=== PATIENT | female | born 1950 | race Caucasian/White ===

== ENCOUNTER → 2016-08-26 | Day surgery (SDC) | payer BC ==
[2016-08-17 09:04] VITALS: Ht 162.6 cm; Wt 81.8 kg
[~2016-08-26] VITALS: Ht 162.6 cm; Wt 81.8 kg
[~2016-08-26] MED LIST: 500ML BSS 0.3ML EPI 1:1000PF IRRIG ONE; ACETAMINOPHEN 325 MG TAB PO PRN; AMLO-110 PO; AMLO-114 PO; AMVISC PLUS 0.8ML SYRINGE INT OCU ONE; ATOR-22 PO; ATROPINE SULFATE 0.1 MG/ML 5ML SYR IV PRN; BROM0.07 OPL; BSS FLUSH ONE; EpHEDrine SULFATE INJ 50 MG/ML AMP IV PRN; EpINEphrine INJ 1MG/ML AMP 1 MG/ML AMP ONE; FENTANYL CITRATE INJ 50 MCG/1 ML 2 ML VIAL IV PRN; FLUMAZENIL 0.1 MG/1 ML 10 ML VIAL IV PRN; HYDROmorphone INJ 2 MG/ML SYR/VIAL IV PRN; LABETALOL HCL IV 5 MG/ML 20ML IV PRN; LACTATED RINGER'S 1000ML 500 ML IV SCH; LIDOCAINE 3.5% OPH GEL PER APPLICATION CHARGE ONE; LIDOCAINE HCL 1% MPF 2 ML VIAL ONE; MEPERIDINE HCL 25 MG/ML CARP IV PRN; MIDAZOLAM HCL 1 MG/ML 2ML VIAL ONE; NALOXONE HCL 0.4 MG/1 ML VIAL/CARP IV PRN; OCUCOAT 1 ML SOLN IO ONE; ONDANSETRON INJ 2 MG/ML 2 ML VIAL IV PRN; PHENYLEPHRINE 100MCG/ML 5ML SYR IV PRN; POVIDONE-IODINE OP SOLN 30 ML BTL ONE; PRED1SUS3 OPL; PROPARACAINE 0.5% OP SOLN PER DROP CHARGE OPL SCH; TOBRAMYCIN/DEXAMETHASONE OPH OINT PER APPLN CHARGE ONE
[2016-08-26] MEDS: PHENYLEPHRINE HCL 2.5% OP SOLN PER DROP CHARGE OPL SCH ×2 (08:58→09:04)
[2016-08-26] MEDS: TROPICAMIDE 1% OP SOLN PER DROP CHARGE OPL SCH ×2 (08:59→09:05)
[2016-08-26] MEDS: CYCLOPENTOLATE HCL 1% OP SOLN PER DROP CHARGE OPL SCH ×2 (09:00→09:06)
[2016-08-26] MEDS: KETOROLAC 0.5% OP SOLN PER DROP CHARGE OPL SCH ×2 (09:01→09:07)
[2016-08-26] MEDS: GATIFLOXACIN OP SOLN PER DROP CHARGE OPL SCH ×2 (09:03→09:15)
--- NOTE | 2016-08-26 09:17 | History & Physical Bridge - SC ---
H&P Re-Evaluation Bridge Note: I have examined the patient, reviewed the History & Physical and in the interval since the performance of the History & Physical I have noted the following changes of clinical significance: No changes noted
--- NOTE | 2016-08-26 10:01 | Discharge Instructions-SurgCtr ---
Discharge Instructions Date of Service August 26, 2016. Visit Reason for Visit: Cataract Left Eye Discharge Discharge Diagnosis / Problem: cataract Discharge Goals Goal(s): Improve function Activity Recommendations Activity Limitations: per Instructions/Follow-up section Anesthesia . Post Anesthesia Instructions: If you have had General Anesthesia or IV Sedation: * Do not drive today. * Resume driving when surgeon permits. * Do not make important decisions or sign legal documents today. * Call surgeon for: 1. Temperature elevations greater than 101 degrees F. 2. Uncontrollable pain. 3. Excessive bleeding. 4. Persistent nausea and vomiting. 5. Medication intolerance (nausea, vomiting or rash). * For nausea and vomiting use only clear liquids such as: tea, soda, bouillon until nausea subsides, then gradually increase diet as tolerated. * If you have any concerns or questions, call your surgeon's office. If physician is unavailable and it is an emergency, call 911 or go to the nearest emergency room. . Instructions / Follow-Up Instructions / Follow-Up ACTIVITY RECOMMENDATIONS: * No strenuous lifting, jogging or running for 4 days * No swimming or yard work for 1 week. * Limited bending is permitted, such as putting on shoes. RETURN TO SCHOOL/WORK: No work until seen by physician in office. MEDICATIONS: Resume previous medications unless instructed otherwise by your surgeon. This includes eye drops for glaucoma. Zymaxid/Gatifloxacin (power cap) - one drop every 2 hours until bedtime Nevanac/Ilevro/Prolensa/Ketorolac (arana cap) - one drop every 4 hours until bedtime Prednisolone (white/pink cap, SHAKE WELL) - one drop every 2 hours until bedtime Starting tomorrow - all 3 drops every 4 hours until seen in the office Optive drops - as needed for discomfort SPECIAL CARE INSTRUCTIONS: * Wear eyeshield when sleeping, for four nights. * You may wear your own glasses or sunglasses while awake. * You may read or watch TV * You may shower and wash your face, but be gentle around the eye and pat dry. * Blurry vision and mild irritation are normal. * Call office if pain is more severe or vision becomes dark at . FOLLOW UP VISIT: Follow-up with Dr Hewitt tomorrow. Diet Recommendations Home Diet: resume previous diet Procedures Procedures Performed: Left Cataract Phacoemulsification With Intraocular Lens Implant Pending Studies Studies pending at discharge: no Medical Emergencies . Who to Call and When: Medical Emergencies: If at any time you feel your situation is an emergency, please call 911 immediately. . Non-Emergent Contact Non-Emergency issues call your: Drawstring Knotter . . "Provider Documentation" section prepared by Ventura Hewitt. .
--- NOTE | 2016-08-26 10:02 | [facility] Operative Report ---
Operative Report Date of Service August 26, 2016. Operative Report 1. PREOPERATIVE DIAGNOSIS: Cataract of the left eye. 2. POSTOPERATIVE DIAGNOSIS: Same. 3. PROCEDURE: Phacoemulsification with intraocular lens implantation of the left eye. SURGEON: Dr. Ventura Hewitt. ANESTHESIA: Topical Lidocaine gel, 1% Non- Preserved intracameral Lidocaine, and monitored intravenous sedation. INDICATIONS FOR THE PROCEDURE: The patient is a 66 - year-old female with a history of cataract of the left eye causing significant visual impairment. The details of the proposed procedure were explained to the patient who asked appropriate questions and following discussion of all risks, benefits and alternatives agreed to have the procedure done. 4. OPERATION AND FINDINGS: DESCRIPTION OF PROCEDURE: After informed consent was obtained, the patient was brought to the Operating Room at the [facility]. The patient was placed in a supine position and then the left eye was prepped and draped in the usual sterile fashion for intraocular surgery. A drop of topical Lidocaine gel was placed in the operative eye. A wire lid speculum was then placed in the fornices. A corneal paracentesis was then created temporally. The Non-Preserved Lidocaine was then instilled into the anterior chamber. The anterior chamber was then pressurized with viscoelastic. A 2.0 mm clear corneal incision was then created temporally. A cystotome was inserted into the anterior chamber and used to create a tear in the anterior lens capsule. This capsular tear was then used to create a small flap and the flap was dragged in a counterclockwise direction in order to create a continuous curvilinear capsulorrhexis. Hydrodissection was accomplished with balanced salt solution. Phacoemulsification of the lens nucleus was then performed in a standard [id number] technique. The phaco time was 27 seconds with an average power of 10 %. The remaining cortical material was removed using irrigation aspiration. The capsular bag was then filled with viscoelastic. A Bausch & Lomb MX60 +20.0 diopters lens was then loaded into the injector and injected into the capsular bag. The remaining viscoelastic was removed with the irrigation aspiration handpiece. The wound was hydrated and then checked and found to be watertight. The intraocular pressure was checked and found to be adequate. The wire lid speculum was removed and the patient's face was cleaned and dried. TobraDex ointment was placed in the inferior fornix. The patient was discharged to the Recovery Room having tolerated the procedure well. There were no complications. The patient will be seen tomorrow in the office for follow-up. I attest to the content of the Intraoperative Record and any orders documented therein. Any exceptions are noted below.
[2016-08-26 10:08] VITALS: TEMP 37.3
--- NOTE | 2016-08-26 10:21 | Anesthesia Progress Nt - [facility] ---
Anesthesia Post Op Note Date & Time August 26, 2016 at 10:22 Vital Signs Pain Intensity: 0 Vital Signs Past 12 Hours Date Time Temp Pulse Resp B/P Pulse Ox O2 Delivery O2 Flow Rate FiO2 08/26/16 10:08 37.3 66 20 144/97 94 Room Air 08/26/16 08:46 36.7 83 20 123/80 95 Room Air Notes Mental Status: alert / awake / arousable, participated in evaluation Pt Amnestic to Procedure: Yes Nausea / Vomiting: adequately controlled Pain: adequately controlled Airway Patency, RR, SpO2: stable & adequate BP & HR: stable & adequate Hydration State: stable & adequate Anesthetic Complications: no major complications apparent
[2016-08-26 10:29] VITALS: BP 144/92; PULSE 76; O2SAT 97
== END | disposition home or self-care (01) ==
LOC: X.SURG 08:23
PROVIDERS: ATTEND Ophthalmology
DX: H26.9 Unspecified cataract (principal); I10 Essential (primary) hypertension; E78.5 Hyperlipidemia, unspecified

== ENCOUNTER → 2016-09-21 | Day surgery (SDC) | payer BC ==
[2016-09-07 08:37] VITALS: Ht 162.6 cm; Wt 81.8 kg
[~2016-09-21] VITALS: Ht 162.6 cm; Wt 81.8 kg
[~2016-09-21] MED LIST changes: -AMLO-110 PO; -BSS FLUSH ONE; -FENTANYL CITRATE INJ 50 MCG/1 ML 2 ML VIAL IV PRN; +FENTANYL CITRATE INJ 50 MCG/1 ML 2 ML VIAL ONE; -FLUMAZENIL 0.1 MG/1 ML 10 ML VIAL IV PRN; -HYDROmorphone INJ 2 MG/ML SYR/VIAL IV PRN; -LABETALOL HCL IV 5 MG/ML 20ML IV PRN; -MEPERIDINE HCL 25 MG/ML CARP IV PRN; -NALOXONE HCL 0.4 MG/1 ML VIAL/CARP IV PRN; -ONDANSETRON INJ 2 MG/ML 2 ML VIAL IV PRN; +ONDANSETRON INJ 2 MG/ML 2 ML VIAL ONE; -PHENYLEPHRINE 100MCG/ML 5ML SYR IV PRN; -PROPARACAINE 0.5% OP SOLN PER DROP CHARGE OPL SCH; +PROPARACAINE 0.5% OP SOLN PER DROP CHARGE OPR SCH; +TETRACAINE HCL (OPHTH) 60 DROPS/4 ML BTL OP ONE
[2016-09-21] MEDS: PHENYLEPHRINE HCL 2.5% OP SOLN PER DROP CHARGE OPR SCH ×2 (08:15→08:24)
[2016-09-21] MEDS: TROPICAMIDE 1% OP SOLN PER DROP CHARGE OPR SCH ×2 (08:16→08:25)
[2016-09-21] MEDS: CYCLOPENTOLATE HCL 1% OP SOLN PER DROP CHARGE OPR SCH ×2 (08:18→08:26)
[2016-09-21] MEDS: KETOROLAC 0.5% OP SOLN PER DROP CHARGE OPR SCH ×2 (08:19→08:29)
[2016-09-21] MEDS: GATIFLOXACIN OP SOLN PER DROP CHARGE OPR SCH ×2 (08:21→08:30)
--- NOTE | 2016-09-21 09:17 | Discharge Instructions-SurgCtr ---
Discharge Instructions Date of Service Sep 21, 2016. Visit Reason for Visit: Cataract Right Eye Discharge Discharge Diagnosis / Problem: cataract Discharge Goals Goal(s): Improve function Activity Recommendations Activity Limitations: per Instructions/Follow-up section Anesthesia . Post Anesthesia Instructions: If you have had General Anesthesia or IV Sedation: * Do not drive today. * Resume driving when surgeon permits. * Do not make important decisions or sign legal documents today. * Call surgeon for: 1. Temperature elevations greater than 101 degrees F. 2. Uncontrollable pain. 3. Excessive bleeding. 4. Persistent nausea and vomiting. 5. Medication intolerance (nausea, vomiting or rash). * For nausea and vomiting use only clear liquids such as: tea, soda, bouillon until nausea subsides, then gradually increase diet as tolerated. * If you have any concerns or questions, call your surgeon's office. If physician is unavailable and it is an emergency, call 911 or go to the nearest emergency room. . Instructions / Follow-Up Instructions / Follow-Up ACTIVITY RECOMMENDATIONS: * No strenuous lifting, jogging or running for 4 days * No swimming or yard work for 1 week. * Limited bending is permitted, such as putting on shoes. RETURN TO SCHOOL/WORK: No work until seen by physician in office. MEDICATIONS: Resume previous medications unless instructed otherwise by your surgeon. This includes eye drops for glaucoma. Zymaxid/Gatifloxacin (power cap) - one drop every 2 hours until bedtime Nevanac/Ilevro/Prolensa/Ketorolac (arana cap) - one drop every 4 hours until bedtime Prednisolone (white/pink cap, SHAKE WELL) - one drop every 2 hours until bedtime Starting tomorrow - all 3 drops every 4 hours until seen in the office Optive drops - as needed for discomfort SPECIAL CARE INSTRUCTIONS: * Wear eyeshield when sleeping, for four nights. * You may wear your own glasses or sunglasses while awake. * You may read or watch TV * You may shower and wash your face, but be gentle around the eye and pat dry. * Blurry vision and mild irritation are normal. * Call office if pain is more severe or vision becomes dark at . FOLLOW UP VISIT: Follow-up with Dr Hewitt tomorrow. Diet Recommendations Home Diet: resume previous diet Procedures Procedures Performed: Right Cataract Phacoemulsification With Intraocular Lens Implant Pending Studies Studies pending at discharge: no Medical Emergencies . Who to Call and When: Medical Emergencies: If at any time you feel your situation is an emergency, please call 911 immediately. . Non-Emergent Contact Non-Emergency issues call your: Occ Therapy Asst . . "Provider Documentation" section prepared by Ventura Hewitt. .
--- NOTE | 2016-09-21 09:18 | [facility] Operative Report ---
Operative Report Date of Service Sep 21, 2016. Operative Report 1. PREOPERATIVE DIAGNOSIS: Cataract of the right eye. 2. POSTOPERATIVE DIAGNOSIS: Same. 3. PROCEDURE: Phacoemulsification with intraocular lens implantation of the right eye. SURGEON: Dr. Ventura Hewitt. ANESTHESIA: Topical Lidocaine gel, topical tetracaine, 1% Non-Preserved intracameral Lidocaine, and monitored intravenous sedation. INDICATIONS FOR THE PROCEDURE: The patient is a 66 - year-old female with a history of cataract of the right eye causing significant visual impairment. The details of the proposed procedure were explained to the patient who asked appropriate questions and following discussion of all risks, benefits and alternatives agreed to have the procedure done. 4. OPERATION AND FINDINGS: DESCRIPTION OF PROCEDURE: After informed consent was obtained, the patient was brought to the Operating Room at the [facility]. The patient was placed in a supine position and then the right eye was prepped and draped in the usual sterile fashion for intraocular surgery. A drop of topical Lidocaine gel was placed in the operative eye. Topical tetracaine was then instilled into the right eye. A wire lid speculum was then placed in the fornices. A corneal paracentesis was then created temporally. The Non- Preserved Lidocaine was then instilled into the anterior chamber. The anterior chamber was then pressurized with viscoelastic. A 2.0 mm clear corneal incision was then created temporally. A cystotome was inserted into the anterior chamber and used to create a tear in the anterior lens capsule. This capsular tear was then used to create a small flap and the flap was dragged in a counterclockwise direction in order to create a continuous curvilinear capsulorrhexis. Hydrodissection was accomplished with balanced salt solution. Phacoemulsification of the lens nucleus was then performed in a standard divide- and-conquer technique. The phaco time was 20 seconds with an average power of 10 %. The remaining cortical material was removed using irrigation aspiration. The capsular bag was then filled with viscoelastic. A Bausch & Lomb MX60 + 17.5 diopters lens was then loaded into the injector and injected into the capsular bag. The remaining viscoelastic was removed with the irrigation aspiration handpiece. The wound was hydrated and then checked and found to be watertight. The intraocular pressure was checked and found to be adequate. The wire lid speculum was removed and the patient's face was cleaned and dried. TobraDex ointment was placed in the inferior fornix. The patient was discharged to the Recovery Room having tolerated the procedure well. There were no complications. The patient will be seen tomorrow in the office for follow-up. I attest to the content of the Intraoperative Record and any orders documented therein. Any exceptions are noted below.
[2016-09-21 09:20] VITALS: TEMP 36.3
--- NOTE | 2016-09-21 09:34 | Anesthesia Progress Nt - [facility] ---
Anesthesia Post Op Note Date & Time Sep 21, 2016 at 09:34 Vital Signs Pain Intensity: 0 Vital Signs Past 12 Hours Date Time Temp Pulse Resp B/P (MAP) Pulse Ox O2 Delivery O2 Flow Rate FiO2 09/21/16 09:20 36.3 63 14 106/65 (79) 94 Room Air 09/21/16 08:00 37 83 16 134/85 (101) 95 Room Air Notes Mental Status: alert / awake / arousable, participated in evaluation Pt Amnestic to Procedure: Yes Nausea / Vomiting: adequately controlled Pain: adequately controlled Airway Patency, RR, SpO2: stable & adequate BP & HR: stable & adequate Hydration State: stable & adequate Anesthetic Complications: no major complications apparent
[2016-09-21 09:55] VITALS: BP 118/69; PULSE 64; O2SAT 97
== END | disposition home or self-care (01) ==
LOC: X.SURG 07:50
PROVIDERS: ATTEND Ophthalmology
DX: H26.9 Unspecified cataract (principal); E11.9 Type 2 diabetes mellitus without complications; Z96.649 Presence of unspecified artificial hip joint; Z83.3 Family history of diabetes mellitus

== ENCOUNTER 2024-01-16 18:26 | Inpatient (IN) ==
[2024-01-16] MEDS: HYDROmorphone INJ 0.5 MG/0.5 ML SYR IV PRN (19:11)
[2024-01-16] MEDS: ONDANSETRON INJ 2 MG/ML 2 ML VIAL ONE (19:11)
[2024-01-16] MEDS: SODIUM CHLORIDE 0.9% 1,000 ML IV SCH (19:13)
[2024-01-16 19:36] LABS: Basophils # (auto) 0.07 K/uL (0.00-0.20); Basophils % (auto) 0.7 %; Eosinophils # (auto) 0.15 K/uL (0.00-0.50); Eosinophils % (auto) 1.4 %; Hematocrit (blood only) 41.3 % (37.0-47.0); Hemoglobin 13.2 g/dl (12.0-16.0); Immature Granulocytes # (auto) 0.03 K/uL (0.01-0.20); Immature Granulocytes % (auto) 0.3 %; Lymphocytes # (auto) 2.04 K/uL (1.20-3.40); Lymphocytes % (auto) 19.6 %; Mean Corpuscular Hemoglobin 29.7 pg (25.0-34.0); Mean Platelet Volume 10.4 fL (9.4-12.4); Monocytes # (auto) 0.84 K/uL (0.11-0.59); Monocytes % (auto) 8.1 %; Neutrophils # (auto) 7.28 K/uL (1.40-6.50); Neutrophils % (auto) 69.9 %; Platelet Count 305 K/uL (130-400); RDW Coefficient of Variation 12.9 % (11.5-14.5); RDW Standard Deviation 43.8 fL (36.4-46.3); Red Blood Count 4.44 M/uL (4.20-5.40); White Blood Count 10.41 K/ul (4.8-10.8)
[2024-01-16 19:46] LABS: Albumin Globulin Ratio 1.4 (0.9-2); Albumin Level 4.7 gm/dl (3.4-5.0); BUN Creatinine Ratio 24.8 (10-20); Bilirubin,Total 0.4 mg/dl (0.2-1.0); Creatinine Clr Calc Pharmacy 49.1 ml/min; Est GFR (African American) 55.8 ml/min; Est GFR (Non-African American) 48.2 ml/min; Globulin 3.3 gm/dl (2.5-4.0); Potassium 3.9 mmol/L (3.5-5.1)
[2024-01-16 20:02] LABS: INR 0.9 (0.9-1.1); Partial Thromboplastin Ratio 0.9; Partial Thromboplastin Time 25 Seconds (21-31); Prothrombin Time 10.2 Seconds (9.0-12.0)
[2024-01-16 20:16] LABS: Appearance Urine Clear (Clear); Bilirubin Urine Negative (Negative); Blood Urine Trace-lysed (Negative); Color Urine Yellow; Glucose Urine UA Negative (Negative); Ketones Urine Negative (Negative); Leukocyte Esterase Urine Negative (Negative); Nitrite Urine Negative (Negative); Protein Urine 1+ (Negative); Specific Gravity Urine 1.025 (1.000-1.030); Urobilinogen Urine Negative (Negative); pH Urine 5.5 (4.5-7.5)
--- NOTE | 2024-01-16 20:40 | Emergency Department Note ---
Impression & Plan Acute pain of right hip ED Provider Note NAME: EMELYN PATRICK AGE: 73 SEX: Female INFORMANT: Patient ED PROVIDER(S): Ritesh Vega MD CHIEF COMPLAINT: Right hip pain PLAN: Disposition: Admitted Outpatient prescription management: none Referral: None MEDICAL DECISION MAKING: Patient presented because of acute right hip pain. She was unable to walk. She had tenderness on examination. Rest of her examination did not reveal any significant findings. An IV was established. She was given IV Dilaudid and Zofran. The patient underwent x-ray imaging. There was some concern for possible femoral neck fracture. Body habitus did make interpretation of x-ray challenging. Blood work was unremarkable. ECG did not show any acute findings. CT imaging was ordered to further elucidate the severe hip pain. CT imaging was very concerning for the femoral neck fracture. Patient was reassessed. She was feeling better after the IV Dilaudid. She is not ambulatory. She will need admission to the hospital, orthopedic consultation and further management. Consultation was made with Dr. Gabino Weeks, [facility] hospitalist service. Patient was evaluated in the ER and admitted for further management Care/management discussed with: ED case management Level of care consideration(s): After review of the information above and other included data, I feel the patient requires escalation of care to admission. Triage Nursing notes: reviewed and agree them. Vital Signs: reviewed and remarkable for hypertension Additional History obtained from: none Chronic Medical/Social Conditions affecting care: Hypertension Prior/ Outside/ External records reviewed: none Differential Diagnosis: Fracture, dislocation, neurovascular compromise, pelvic fracture, muscle tear, compartment syndrome, soft tissue injury, as well as other pathologies. Diagnostics, independently interpreted by me: ECG: Twelve-lead ECG reveals a normal sinus rhythm with inferior Q waves at [address] elevation or depression Cardiac Monitoring: Cardiac monitoring ordered by me: The patient was placed on continuous cardiac monitoring and observed. It revealed a normal sinus rhythm at 75 beats per minute without ectopy or evidence of dysrhythmia. Medical decision rules: none Imaging studies: X-ray imaging of the right hip is concerning for nondisplaced femoral neck fracture. Chest x-ray. Findings: A chest x-ray was performed and revealed no pneumothorax, effusion, infiltrate, pulmonary edema, free air under the diaphragm, or wide mediastinum. Impression: No acute disease. HPI: 73 year old Female arrives for evaluation of severe right hip pain. This started mildly last night and became severe this morning. Patient states she heard a crack when she tried to stand up and cannot bear weight. EMS was summoned. The patient also notes the following associated symptoms, none. The patient has been given fentanyl 100 mcg IM for relieving factors. Current pain is rated as 5/10. Pt denies LOC, headache, visual changes, neck pain, chest pain, breathing difficulties, nausea, vomiting, abdominal pain, back pain, other extremity pain, numbness, weakness, open wounds, active bleeding, or other complaints. PAST MEDICAL HISTORY: See Below, hypertension PAST SURGICAL HISTORY: See Below, left hip replacement SOCIAL HISTORY: See Below, non-smoker HOME MEDICATIONS: See Below ALLERGIES: See Below VITALS: See Below PHYSICAL EXAMINATION: GENERAL: Awake, alert, uncomfortable-appearing, in no distress HENT: Normocephalic, atraumatic. Oropharynx unremarkable. EYES: Normal conjunctiva. Sclera non-icteric. NECK: Inspection normal. Non-tender. Supple. No nuchal rigidity. FROM. No masses. RESPIRATORY: Clear to auscultation. No wheezes. No rales. Normal respiratory effort. CARDIAC: Normal rate. Normal rhythm. No murmurs. No rubs. Extremities warm and well perfused. Pulses equal. No JVD. GI: Soft, non-distended. No tenderness to palpation. No rebound or guarding. No masses. RECTAL: Deferred. MUSCULOSKELETAL: Both upper and left lower extremities are atraumatic. Examination of the right hip reveals tenderness to palpation and also limited range of motion secondary to pain in the right hip joint. The femur, knee, and distal lower leg examined normally. LOWER EXTREMITIES: Calves are equal size bilaterally and non-tender. No edema. No discoloration. NEURO: Normal sensorium. No sensory or motor deficits noted. SKIN: No rash or jaundice noted. PROCEDURES: none CRITICAL CARE: none OBSERVATION NOTE: none Past Med/Surg History Problem List (Updated 01/16/24 @ 20:40 by Ritesh Vega MD) Acute pain of right hip (Acute) Dyslipidemia (Chronic) Hypertension (Chronic) Social History Smoking Status: Never smoker Preferred Language: Croatian Feels Safe at Home: Yes Allergies Allergies Allergy/AdvReac Type Severity Reaction Status Date / Time Penicillins Allergy Unknown RASH Verified 01/16/24 21:45 simvastatin AdvReac Unknown MUSCLE Verified 01/16/24 21:45 CRAMPING Home Meds Home Medications Medication Instructions Recorded Confirmed ATORVASTATIN (LIPITOR) 20 mg PO QAM #0 tabs 08/17/16 acetaminophen 650 mg 650 mg PO PRN Pain 01/16/24 tablet,extended release (Tylenol Arthritis Pain) multivitamin 1 tab PO DAILY 01/16/24 01/16/24 Results & Data (ED) Vital Signs Vital Signs - 24 hr 01/16/24 18:35 01/16/24 19:29 01/16/24 20:59 Temperature 36.8 C Temperature Source Oral Pulse Rate 83 75 Pulse Rate [Apical] 75 Respiratory Rate 20 20 Respiratory Effort / Characteristics Non-Labored Spontaneous Non-Labored Spontaneous Respiratory Depth Normal Normal Respiratory Pattern Regular Regular Blood Pressure 207/95 H Blood Pressure [Left Arm] 160/80 H Blood Pressure Mean 132 Blood Pressure Mean [Left Arm] 106 Pulse Oximetry 98 97 Oxygen Delivery Method Room Air Room Air Sepsis Recent Fever Within 48 Hours No Sepsis New/Unexplained Change in Mental Status N/A Sepsis Action Taken by Nursing No Action Required Laboratory Data 01/16/24 18:45 01/16/24 18:45 Lab Results 01/16/24 01/16/24 Range/Units 18:45 20:03 WBC 10.41 (4.8-10.8) K/ul RBC 4.44 (4.20-5.40) M/uL Hgb 13.2 (12.0-16.0) g/dl Hct 41.3 (37.0-47.0) % MCV 93.0 (80.0-100.0) fL MCH 29.7 (25.0-34.0) pg MCHC 32.0 (32.0-36.0) g/dL RDW Std Deviation 43.8 (36.4-46.3) fL RDW Coeff of Leana 12.9 (11.5-14.5) % Plt Count 305 (130-400) K/uL MPV 10.4 (9.4-12.4) fL Immature Gran % (Auto) 0.3 % Neut % (Auto) 69.9 % Lymph % (Auto) 19.6 % [place] % (Auto) 8.1 % Eos % (Auto) 1.4 % Baso % (Auto) 0.7 % Neut # (Auto) 7.28 H (1.40-6.50) K/uL Lymph # (Auto) 2.04 (1.20-3.40) K/uL [place] # (Auto) 0.84 H (0.11-0.59) K/uL Eos # (Auto) 0.15 (0.00-0.50) K/uL Baso # (Auto) 0.07 (0.00-0.20) K/uL Immature Gran # (Auto) 0.03 (0.01-0.20) K/uL PT 10.2 (9.0-12.0) Seconds INR 0.9 (0.9-1.1) APTT 25 (21-31) Seconds PTT Ratio 0.9 Sodium 141 (136-145) mmol/L Potassium 3.9 (3.5-5.1) mmol/L Chloride 106 (98-107) mmol/L Carbon Dioxide 24 (21-32) mmol/L Anion Gap 11 (3-11) BUN 28 H (6-23) mg/dl Creatinine 1.13 (0.6-1.2) mg/dl Est Cr Clr Drug Dosing 49.1 ml/min Est GFR ( Amer) 55.8 ml/min Est GFR (Non-Af Amer) 48.2 ml/min BUN/Creatinine Ratio 24.8 H (10-20) Glucose 102 H (70-99(Fasting)) mg/dl Calcium 10.0 (8.6-10.3) mg/dl Total Bilirubin 0.4 (0.2-1.0) mg/dl AST 27 (13-39) U/L ALT 19 (7-52) U/L Alkaline Phosphatase 58 (34-104) U/L Total Protein 8.0 (6.0-8.3) gm/dl Albumin 4.7 (3.4-5.0) gm/dl Globulin 3.3 (2.5-4.0) gm/dl Albumin/Globulin Ratio 1.4 (0.9-2) Urine Color Yellow Urine Appearance Clear (Clear) Urine pH 5.5 (4.5-7.5) Ur Specific [place] 1.025 (1.000-1.030) Urine Protein 1+ H (Negative) Urine Glucose (UA) Negative (Negative) Urine Ketones Negative (Negative) Urine Blood Trace-lysed H (Negative) Urine Nitrite Negative (Negative) Urine Bilirubin Negative (Negative) Urine Urobilinogen Negative (Negative) Ur Leukocyte Esterase Negative (Negative) Urine RBC 0-2 (0-2) /hpf Urine WBC 0-5 (0-5) /hpf Ur Epithelial Cells 0-2 (0-2) /hpf Urine Bacteria None Seen (None Seen) Administered Medications Sodium Chloride (Nss) 1,000 mls @ 75 mls/hr IV .[id number] [place] Stop: 01/17/24 08:34 Last Admin: 01/16/24 19:13 Dose: 75 mls/hr Documented By: ANGI Discontinued Medications Hydromorphone HCl (Hydromorphone Inj 0.5 Mg/0.5 Ml Syr) 0.5 mg IV Q20M PRN PRN Reason: Severe Pain Stop: 01/30/24 19:07 Last Admin: 01/16/24 20:58 Dose: 0.5 mg Documented By: Admin: 01/16/24 19:47 Dose: 0.5 mg Documented By: Admin: 01/16/24 19:11 Dose: 0.5 mg Documented By: ANGI Ondansetron HCl (Ondansetron Inj 2 Mg/Ml 2 Ml Vial) Confirm Administered Dose 4 mg .ROUTE .STK-MED ONE Stop: 01/16/24 19:12 Last Admin: 01/16/24 19:11 Dose: 4 mg Documented By: ANGI Discharge Plan Visit Data Chief Complaint: Hip Pain ED Provider: Ritesh Vega Discharge Problem: Acute pain of right hip Forms Stand Alone Forms: [facility] Prescriptions Prescriptions: No Action ATORVASTATIN (LIPITOR) 20 MG tablet 20 mg PO QAM Qty: 0 Patient Comments: pt states she does not take anymore, states a provider did not tell her to stop taking multivitamin [Multi-Vitamins] Tablet 1 tab PO DAILY acetaminophen [Tylenol Arthritis Pain] 650 mg Tablet Extended Release 650 mg PO PRN (Reason: Pain) Referrals Referrals: Porter Whitmore DO [Primary Care Provider] -
[2024-01-16 21:25] LABS: Bacteria Urine None Seen (None Seen); Epithelial Cell Urine 0-2 /hpf (0-2); RBC Urine 0-2 /hpf (0-2); WBC Urine 0-5 /hpf (0-5)
[2024-01-16] MEDS ORDERED: PROMETHAZINE 6.25 MG/50.25 ML BAG IV PRN (21:35)
--- NOTE | 2024-01-16 23:33 | History & Physical Report ---
Date of Service January 16, 2024 Assessment & Plan (1) Asymptomatic hypertensive urgency: Plan: Secondary to right femoral fracture possible systolic murmur on exam hyperlipidemia, on statin Rx DM2 diet-controlled, well-controlled as of recent hemoglobin A1c of 5.2 last 2021 anal cancer status post surgery/chemoradiation Admit to medical telemetry given uncontrolled BP Initiate losartan Analgesia TTE re: systolic murmur Orthopedics consult Re: Right femoral fracture N.p.o. in anticipation of procedure Final medical evaluation contingent on BP control and TTE results ISS BG goal 1 - 40, update hemoglobin A1c DVT prophylaxis. SCDs re: possible surgery Full code Text document was generated using [employer] voice recognition software. It may contain grammatical or spelling errors. Kindly contact undersigned for clarification of any documentation item in question. History of Present Illness Chief Complaint: Right hip pain Primary Care Provider: Porter Whitmore DO History obtained from patient and records. Medical history significant for hypertension, hyperlipidemia, DM2 diet- controlled, anal cancer status post surgery/chemoradiation. Patient heard and felt a crack on the right hip as she tried to stand up last night. Discomfort worse this morning. No recollection of recent falls. No headache, no chest pain, no SOB. SBP 200s upon arrival at the ER. Medical History as above Surgical History : Hip surgery, back surgery, rectal biopsy Family History : Heart disease, stroke, lung cancer, DM Personal/Social history :non-smoker, occasional EtOH intake, retired businesswoman Allergies Allergy/AdvReac Type Severity Reaction Status Date / Time Penicillins Allergy Unknown RASH Verified 01/16/24 21:45 simvastatin AdvReac Unknown MUSCLE Verified 01/16/24 21:45 CRAMPING Home Medications Medication Instructions Recorded Confirmed Type acetaminophen 650 mg 650 mg PO DIRECTED PRN Pain 01/16/24 01/17/24 History tablet,extended release (Tylenol Arthritis Pain) multivitamin 1 tab PO DAILY 01/16/24 01/17/24 History Pre/Probiotic 1 cap PO DAILY 01/17/24 01/17/24 History Super Beets 1 cap PO DAILY 01/17/24 01/17/24 History Vitamin For Kidney 2 cap PO DAILY 01/17/24 01/17/24 History Vitamin For Liver 1 cap PO DAILY 01/17/24 01/17/24 History Past Med/Surg History Problem List (Updated 01/17/24 @ 05:15 by Gabino Weeks MD) Asymptomatic hypertensive urgency Acute pain of right hip (Acute) Dyslipidemia (Chronic) Hypertension (Chronic) Social History Smoking Status: Never smoker Hx Alcohol Use: No Hx Substance Use: No Preferred Language: Hebrew Communication Ability: Effective Case Worker Required: No Beliefs That Will Affect Care: None Current Living Situation: Alone Feels Safe at Home: Yes Safety Concerns: Feels Safe At This Time Assistive Devices: None Review of Systems Review of Systems: As per HPI, all other systems reviewed and negative Physical Exam Physical Exam: GENERAL: uncomfortable, obese, no respiratory distress SKIN: Normal color, warm HEENT: [place] palpebral conjunctivae, no ptosis, dry buccal mucosa NECK : Supple, short neck, no tenderness CHEST : CTA, no tenderness HEART : RRR, systolic murmur ABDOMEN: Some distention, nontender EXTREMITIES : Minimal LE swelling, right hip tenderness, no other conspicuous deformities noted NEUROLOGIC : Coherent, no facial asymmetry, no other gross focality Results & Data Results & Data Vital Signs (Past 12 Hours) Vital Signs Temp Pulse Pulse Resp BP BP Pulse Ox 01/16/24 23:25 73 01/16/24 22:00 81 22 168/87 H 93 01/16/24 20:59 75 20 160/80 H 97 01/16/24 19:29 75 01/16/24 18:35 36.8 C 83 20 207/95 H 98 O2 Del Method 01/16/24 23:25 01/16/24 22:00 Room Air 01/16/24 20:59 Room Air 01/16/24 19:29 01/16/24 18:35 Room Air Laboratory Results Laboratory Results WBC 10.41 K/ul (4.8-10.8) 01/16/24 18:45 RBC 4.44 M/uL (4.20-5.40) 01/16/24 18:45 Hgb 13.2 g/dl (12.0-16.0) 01/16/24 18:45 Hct 41.3 % (37.0-47.0) 01/16/24 18:45 MCV 93.0 fL (80.0-100.0) 01/16/24 18:45 MCH 29.7 pg (25.0-34.0) 01/16/24 18:45 MCHC 32.0 g/dL (32.0-36.0) 01/16/24 18:45 RDW Std Deviation 43.8 fL (36.4-46.3) 01/16/24 18:45 RDW Coeff of Leana 12.9 % (11.5-14.5) 01/16/24 18:45 Plt Count 305 K/uL (130-400) 01/16/24 18:45 MPV 10.4 fL (9.4-12.4) 01/16/24 18:45 Immature Gran % (Auto) 0.3 % 01/16/24 18:45 Neut % (Auto) 69.9 % 01/16/24 18:45 Lymph % (Auto) 19.6 % 01/16/24 18:45 [place] % (Auto) 8.1 % 01/16/24 18:45 Eos % (Auto) 1.4 % 01/16/24 18:45 Baso % (Auto) 0.7 % 01/16/24 18:45 Neut # (Auto) 7.28 K/uL (1.40-6.50) H 01/16/24 18:45 Lymph # (Auto) 2.04 K/uL (1.20-3.40) 01/16/24 18:45 [place] # (Auto) 0.84 K/uL (0.11-0.59) H 01/16/24 18:45 Eos # (Auto) 0.15 K/uL (0.00-0.50) 01/16/24 18:45 Baso # (Auto) 0.07 K/uL (0.00-0.20) 01/16/24 18:45 Immature Gran # (Auto) 0.03 K/uL (0.01-0.20) 01/16/24 18:45 PT 10.2 Seconds (9.0-12.0) 01/16/24 18:45 INR 0.9 (0.9-1.1) 01/16/24 18:45 APTT 25 Seconds (21-31) 01/16/24 18:45 PTT Ratio 0.9 01/16/24 18:45 Sodium 141 mmol/L (136-145) 01/16/24 18:45 Potassium 3.9 mmol/L (3.5-5.1) 01/16/24 18:45 Chloride 106 mmol/L (98-107) 01/16/24 18:45 Carbon Dioxide 24 mmol/L (21-32) 01/16/24 18:45 Anion Gap 11 (3-11) 01/16/24 18:45 BUN 28 mg/dl (6-23) H 01/16/24 18:45 Creatinine 1.13 mg/dl (0.6-1.2) 01/16/24 18:45 Est Cr Clr Drug Dosing 49.1 ml/min 01/16/24 18:45 Est GFR ( Amer) 55.8 ml/min 01/16/24 18:45 Est GFR (Non-Af Amer) 48.2 ml/min 01/16/24 18:45 BUN/Creatinine Ratio 24.8 (10-20) H 01/16/24 18:45 Glucose 102 mg/dl (70-99(Fasting)) H 01/16/24 18:45 Calcium 10.0 mg/dl (8.6-10.3) 01/16/24 18:45 Total Bilirubin 0.4 mg/dl (0.2-1.0) 01/16/24 18:45 AST 27 U/L (13-39) 01/16/24 18:45 ALT 19 U/L (7-52) 01/16/24 18:45 Alkaline Phosphatase 58 U/L (34-104) 01/16/24 18:45 Total Protein 8.0 gm/dl (6.0-8.3) 01/16/24 18:45 Albumin 4.7 gm/dl (3.4-5.0) 01/16/24 18:45 Globulin 3.3 gm/dl (2.5-4.0) 01/16/24 18:45 Albumin/Globulin Ratio 1.4 (0.9-2) 01/16/24 18:45 Urine Color Yellow 01/16/24 20:03 Urine Appearance Clear (Clear) 01/16/24 20:03 Urine pH 5.5 (4.5-7.5) 01/16/24 20:03 Ur Specific [place] 1.025 (1.000-1.030) 01/16/24 20:03 Urine Protein 1+ (Negative) H 01/16/24 20:03 Urine Glucose (UA) Negative (Negative) 01/16/24 20:03 Urine Ketones Negative (Negative) 01/16/24 20:03 Urine Blood Trace-lysed (Negative) H 01/16/24 20:03 Urine Nitrite Negative (Negative) 01/16/24 20:03 Urine Bilirubin Negative (Negative) 01/16/24 20:03 Urine Urobilinogen Negative (Negative) 01/16/24 20:03 Ur Leukocyte Esterase Negative (Negative) 01/16/24 20:03 Urine RBC 0-2 /hpf (0-2) 01/16/24 20:03 Urine WBC 0-5 /hpf (0-5) 01/16/24 20:03 Ur Epithelial Cells 0-2 /hpf (0-2) 01/16/24 20:03 Urine Bacteria None Seen (None Seen) 01/16/24 20:03 CT right hip Nondisplaced basicervical fracture of the right femur. Diagnostic Findings Chest x-ray as per my interpretation cardiomegaly EKG as per my interpretation : Rate 75, NSR, normal axis, inferior infarct, T wave abnormalities inferior leads
[2024-01-16 23:40] LABS: Magnesium 2.2 mg/dl (1.7-2.4)
[2024-01-16] MEDS ORDERED: NALOXONE HCL 0.4 MG/1 ML VIAL/CARP IV PRN (23:49)
[2024-01-16] MEDS ORDERED: bisacodyL 10 MG SUPP PR PRN (23:49)
[2024-01-17] MEDS: PROMETHAZINE 6.25 MG/50.25 ML BAG IV STA (00:15)
[2024-01-17] MEDS: FAMOTIDINE 20MG IV PUSH 20 MG/5 ML SYR IV STA (00:15)
[2024-01-17] MEDS: LOSARTAN POTASSIUM 25 MG TAB PO STA (00:15)
[2024-01-17] MEDS: LORATADINE 10 MG TAB PO ONE (00:15)
--- NOTE | 2024-01-17 00:19 | CT Scan Report ---
Exam(s): CT RIGHT HIP Without Contrast EXAM: CT Right Lower Extremity Without Intravenous Contrast, Hip CLINICAL HISTORY: Reason for exam: hip pain, ? femoral neck fx. TECHNIQUE: Axial computed tomography images of the right hip without intravenous contrast. CTDI is 37.23 mGy and DLP is 596.70 mGy-cm. Automated exposure control was utilized for the study. A dose lowering technique was utilized adhering to the principles of ALARA. COMPARISON: Same day right hip radiographs FINDINGS: Bones/joints: Nondisplaced basicervical fracture of the right femur. Right hip joint effusion. No dislocation. Soft tissues: Unremarkable. Vasculature: Phleboliths seen in the right pelvis. IMPRESSION: Nondisplaced basicervical fracture of the right femur. Electronically signed by: Raffy Guadalupe M.D. 01/17/24 00:18 AM
[2024-01-17] MEDS ORDERED: GLUCAGON FOR INJ 1 MG VIAL SQ PRN (01:40)
[2024-01-17] MEDS ORDERED: DEXTROSE 50% 50 ML SYRINGE IV PRN (01:40)
[2024-01-17] MEDS ORDERED: GLUCOSE 40% GEL 15 GM TUBE PO PRN (01:40)
[2024-01-17] MEDS ORDERED: GLUCOSE 10 TAB/TUBE PO PRN (01:40)
[2024-01-17] MEDS ORDERED: CARBOHYDRATES FOR HYPOGLYCEMIA PO PRN (01:40)
[2024-01-17] MEDS: INSULIN ASPART PER UNIT CHARGE SC SCH (03:41)
[2024-01-17 05:06] LABS: Basophils # (auto) 0.04 K/uL (0.00-0.20); Basophils % (auto) 0.5 %; Eosinophils # (auto) 0.09 K/uL (0.00-0.50); Hematocrit (blood only) 34.1 % (37.0-47.0); Hemoglobin 11.3 g/dl (12.0-16.0); Immature Granulocytes # (auto) 0.03 K/uL (0.01-0.20); Immature Granulocytes % (auto) 0.3 %; Lymphocytes # (auto) 1.72 K/uL (1.20-3.40); Lymphocytes % (auto) 19.6 %; Mean Corpuscular Hemoglobin 30.5 pg (25.0-34.0); Mean Corpuscular Hgb Conc 33.1 g/dL (32.0-36.0); Mean Corpuscular Volume 92.2 fL (80.0-100.0); Mean Platelet Volume 10.1 fL (9.4-12.4); Monocytes # (auto) 0.81 K/uL (0.11-0.59); Monocytes % (auto) 9.2 %; Neutrophils # (auto) 6.08 K/uL (1.40-6.50); Neutrophils % (auto) 69.4 %; Platelet Count 276 K/uL (130-400); RDW Coefficient of Variation 12.9 % (11.5-14.5); RDW Standard Deviation 43.6 fL (36.4-46.3); White Blood Count 8.77 K/ul (4.8-10.8)
[2024-01-17 05:17] LABS: BUN Creatinine Ratio 25.5 (10-20); Calcium 9.2 mg/dl (8.6-10.3); Creatinine Clr Calc Pharmacy 54.4 ml/min; Est GFR (African American) 63.2 ml/min; Est GFR (Non-African American) 54.5 ml/min
[2024-01-17] MEDS: MoRPHine SULFATE 4 MG/ML 1 ML CARP\\VIAL IV PRN (05:26)
[2024-01-17] MEDS: oxyCODONE HCL IR 5 MG TAB (IMMEDIATE RELEASE) PO PRN (06:36)
--- NOTE | 2024-01-17 07:01 | XRay Report ---
XR hip RT min 2V HISTORY: 73 years-old Female right hip pain acute right hip pain COMPARISON: CT right hip of same day TECHNIQUE: 2 views of the right hip FINDINGS: There is a subtle acute nondisplaced basicervical fracture of the right femur. No dislocation. Jayda garcia imaged left hip arthroplasty. There is [id number] right hip osteoarthritis. Fusion hardware of the lumbar spine. IMPRESSION: Acute nondisplaced basicervical right femoral fracture. ACT 112: Negative or not required by law. The above report was generated using voice recognition software. It may contain grammatical, syntax o r spelling errors. Electronically signed by: Julio Sanchez M.D. 01/17/2024 7:00 AM
[2024-01-17 07:06] LABS: Estimated Average Glucose 128 mg/dl; Hemoglobin A1C 6.1 % (4.5-5.6)
--- NOTE | 2024-01-17 07:17 | XRay Report ---
XR chest 1V portable CLINICAL HISTORY: Hip pain. COMPARISON STUDY: Chest radiograph July 05, 2006. FINDINGS: Lung volumes are normal. Lungs are clear. There is no pneumothorax or pleural effusion. Mil d cardiomegaly. Mediastinal contours are normal. There is no evidence for pulmonary edema. IMPRESSION: No acute cardiopulmonary findings. ACT 112: Negative or not required by law. Electronically signed by: Walter Victoria M.D. 01/17/2024 7:16 AM
--- NOTE | 2024-01-17 10:54 | Electrocardiogram Report ---
Test Reason : Blood Pressure : */* mmHG Vent. Rate : 75 BPM Atrial Rate : 75 BPM P-R Int : 144 ms QRS Dur : 78 ms QT Int : 384 ms P-R-T Axes : 52 -4 4 degrees QTcB Int : 428 ms Normal sinus rhythm possible Inferior infarct , age undetermined Abnormal ECG Confirmed by Patricio Quintanilla ([id number]) on 01/17/2024 10:54:04 AM Referred By: REFERRED SELF Confirmed By: Patricio Quintanilla
[2024-01-17] MEDS: HYDROmorphone INJ 0.5 MG/0.5 ML SYR IV STA (11:18)
[2024-01-17] MEDS: ONDANSETRON INJ 2 MG/ML 2 ML VIAL IV PRN (11:23)
--- NOTE | 2024-01-17 12:06 | XRay Report ---
XR knee LT 1 or 2V routine HISTORY: 73 years-old Female acute pain acute pain of the left knee COMPARISON: None TECHNIQUE: 2 views of the left knee FINDINGS: Partially imaged hardware within the mid femoral diaphysis. Chondrocalcinosis with moderate tricompar tmental osteoarthritis. Small joint effusion with synovial calcifications. IMPRESSION: Moderate osteoarthritis without acute fracture or dislocation. ACT 112: Negative or not required by law. The above report was generated using voice recognition software. It may contain grammatical, syntax o r spelling errors. Electronically signed by: Julio Sanchez M.D. 01/17/2024 12:05 PM
--- NOTE | 2024-01-17 12:38 | Orthopedic Consultation ---
Date of Service January 17, 2024 Assessment & Plan (1) Closed right hip fracture: She has a basicervical right hip fx. NPO after midnight. Plan for Im nailing of the right hip/femur tomorrow with Dr. George. Aspirated her left knee today. This looked quite inflammatory. Will send off for cell count, gram stain/ cultures, and crystal analysis stat. Discussed with Dr. George. Procedure: Left knee sterilely prepped with alcohol and using aseptic technique 35ml of cloudy inflammatory appearing synovial fluid was aspirated from the knee joint. She tolerated the procedure well. No complications. History of Present Illness Reason for Consultation: . Requesting Physician: . Attending Physician: Cricket Sarkar MD .73 year old patient admitted last night with right hip pain and left knee pain. She denies any injury. She started having right hip pain 2 days again, progressed to the point she couldn't weight bear. Also complaining of acute left knee pain. No past knee problems. Denies history of past knee surgery, gout, or pseudogout. She did have left chavez she said about 20 years ago for a fracture. She says at times her hip pops out and back in. Allergies Allergy/AdvReac Type Severity Reaction Status Date / Time Penicillins Allergy Unknown RASH Verified 01/16/24 21:45 simvastatin AdvReac Unknown MUSCLE Verified 01/16/24 21:45 CRAMPING Home Medications Medication Instructions Recorded Confirmed Type acetaminophen 650 mg 650 mg PO DIRECTED PRN Pain 01/16/24 01/17/24 History tablet,extended release (Tylenol Arthritis Pain) multivitamin 1 tab PO DAILY 01/16/24 01/17/24 History Pre/Probiotic 1 cap PO DAILY 01/17/24 01/17/24 History Super Beets 1 cap PO DAILY 01/17/24 01/17/24 History Vitamin For Kidney 2 cap PO DAILY 01/17/24 01/17/24 History Vitamin For Liver 1 cap PO DAILY 01/17/24 01/17/24 History Past Med/Surg History Problem List Diabetes mellitus Hypertensive urgency Closed right hip fracture Asymptomatic hypertensive urgency Acute pain of right hip (Acute) Dyslipidemia (Chronic) Hypertension (Chronic) Social History Smoking Status: Never smoker Hx Alcohol Use: No Hx Substance Use: No Preferred Language: Iraqi Communication Ability: Effective Operating Systems Programmer Required: No Beliefs That Will Affect Care: None Current Living Situation: Alone Feels Safe at Home: Yes Safety Concerns: Feels Safe At This Time Assistive Devices: Glasses Review of Systems All systems reviewed & are unremarkable except as noted in HPI & below. Physical Exam . alert and oriented. NAD Right hip: does not tolerate any range of motion of hip. She can dorsiflex and plantarflex. NVI Left leg: large knee effusion. General tenderness to light touch. Cannot do a straight leg raise. No erythema. Results & Data Results & Data Laboratory Results . Diagnostic Findings .xray and ct scan of right hip and pelvis shows a nondisplaced basicervical femoral neck fracture. She has previous left chavez. PG Care Time/CCT Total # of Minutes Spent Total Time Spent with Patient: Total time spent is greater than 50% in coordination of care (as documented) at patient's floor/unit and/or counseling patient: Coding Level of Care Code 92172 IN/OBS CONSULT LVL 4,60M (57 - DECISION FOR SURGERY) Diagnoses Closed right hip fracture S72.001A
--- NOTE | 2024-01-17 13:30 | Hospitalist Progress Note ---
Date of Service January 17, 2024 Assessment & Plan (1) Closed right hip fracture: Plan: Denied history of fall Developed pain on trying to get up from bed Hip CT showed nondisplaced fracture of right femur L Knee XR noted moderate osteoarthritis Pain control Patient denied fall. Concern for pathological nontraumatic fracture Check Vit D level Ortho eval noted Planned for OR tomorrow Keep NPO PMN Will get PT/OT eval post op (2) Hypertensive urgency: Plan: Review of EPIC flowsheet show patient's BP has been high in the past. Last BP noted was 178/102 in 01/10/2023 Hence Likely has Hypertension, though not on any medication per med rec/EPIC review Worsened hypertension in setting of pain from hip fracture. Continue losartan given on admission Optimize BP control and monitor TTE: LV normal, mild conc LVH, EF 55-60%, Grade I DD, mild AV sclerosis without stenosis, mild mitral calcification, trace MR, trace TR (3) Diabetes mellitus: Plan: Diet controlled HbA1c today is 6.1 ISS Code status: Full DVT PPx: Hold pharm agent in view of planned surgery. Will need DVT pharm prophylaxis post op I spent a total of 50 minutes coordinating, documenting and providing care for this patient excluding time spent in performance of separately billed services Admission and Anticipated Discharge Date Admission Date: January 16, 2024 Subjective Patient seen and examined Reports right hip pain and left knee pain Reports nausea Denied chest pain, cough, SOB, abd pain Denied fever or chills Physical Exam Constitutional: + acute distress (Painful) and + obese; + not appropriately hydrated Eyes: PERRL, conjunctivae normal, anicteric sclerae ENMT: external ear and nose normal, oropharynx normal Respiratory: normal respiratory effort, lungs clear to auscultation Cardiovascular: Rate/Rhythm: regular rate and regular rhythm S1 S2 Gastrointestinal (Abdomen): normal bowel sounds, soft, nontender, no hep atosplenomegaly Musculoskeletal: Right hip tenderness Left knee swelling Neurologic: PERRL, EOMI, accommodation nl, no face palsy, no dysarthria Psychiatric: A+Ox3, euthymic affect Results & Data Results & Data Vital Signs (Past 12 Hours) Vital Signs Temp Pulse Pulse Resp BP BP Pulse Ox 01/17/24 12:24 76 19 188/98 H 97 01/17/24 12:00 75 20 186/86 H 97 01/17/24 11:45 73 18 94 10/01/24 11:44 170/74 H 01/17/24 11:44 170/74 H 01/17/24 11:44 170/74 H 01/17/24 11:44 170/74 H 01/17/24 11:33 73 20 90 01/17/24 11:18 90 16 94 01/17/24 11:18 215/111 H 01/17/24 11:00 79 22 96 01/17/24 10:36 75 21 93 01/17/24 09:18 72 18 95 01/17/24 09:01 110/87 01/17/24 09:01 110/87 01/17/24 08:57 75 24 97 01/17/24 08:07 69 20 162/77 H 92 01/17/24 08:06 68 22 91 01/17/24 08:00 162/77 H 01/17/24 08:00 162/77 H 01/17/24 07:45 71 20 90 01/17/24 07:03 79 18 94 01/17/24 07:00 166/81 H 01/17/24 07:00 166/81 H 01/17/24 06:45 70 18 96 01/17/24 06:19 85 21 141/110 H 94 01/17/24 06:18 141/110 H 01/17/24 06:15 82 23 94 01/17/24 06:03 71 17 96 01/17/24 06:01 208/94 H 01/17/24 06:01 208/94 H 01/17/24 05:57 79 21 96 01/17/24 05:35 186/69 H 01/17/24 05:33 36.8 C 79 21 186/69 H 95 01/17/24 05:30 82 20 96 01/17/24 05:06 68 19 01/17/24 05:00 191/98 H 01/17/24 05:00 191/98 H 01/17/24 04:57 79 23 01/17/24 04:09 64 19 99 01/17/24 04:01 145/70 H 01/17/24 04:01 145/70 H 01/17/24 03:54 61 18 93 01/17/24 03:40 66 16 173/79 H 96 01/17/24 03:39 173/79 H 01/17/24 03:39 70 17 95 01/17/24 03:27 63 29 H 01/17/24 03:06 64 21 01/17/24 03:01 71 01/17/24 02:00 68 15 01/17/24 01:33 77 15 O2 Del Method O2 Flow Rate 01/17/24 12:24 01/17/24 12:00 Nasal Cannula 2 01/17/24 11:45 01/17/24 11:44 01/17/24 11:44 01/17/24 11:44 01/17/24 11:44 01/17/24 11:33 01/17/24 11:18 01/17/24 11:18 01/17/24 11:00 01/17/24 10:36 01/17/24 09:18 01/17/24 09:01 01/17/24 09:01 01/17/24 08:57 01/17/24 08:07 Room Air 01/17/24 08:06 01/17/24 08:00 01/17/24 08:00 01/17/24 07:45 01/17/24 07:03 01/17/24 07:00 01/17/24 07:00 01/17/24 06:45 01/17/24 06:19 Room Air 01/17/24 06:18 01/17/24 06:15 01/17/24 06:03 01/17/24 06:01 01/17/24 06:01 01/17/24 05:57 01/17/24 05:35 01/17/24 05:33 Room Air 01/17/24 05:30 01/17/24 05:06 01/17/24 05:00 01/17/24 05:00 01/17/24 04:57 01/17/24 04:09 01/17/24 04:01 01/17/24 04:01 01/17/24 03:54 01/17/24 03:40 Room Air 01/17/24 03:39 01/17/24 03:39 01/17/24 03:27 01/17/24 03:06 01/17/24 03:01 01/17/24 02:00 01/17/24 01:33 Laboratory Results Abnormal lab results 09/01/16/24 01/17/24 Range/Units 18:45 20:03 03:35 RBC (4.20-5.40) M/uL Hgb (12.0-16.0) g/dl Hct (37.0-47.0) % Neut # (Auto) 7.28 H (1.40-6.50) K/uL [place] # (Auto) 0.84 H (0.11-0.59) K/uL Chloride (98-107) mmol/L BUN 28 H (6-23) mg/dl BUN/Creatinine Ratio 24.8 H (10-20) Glucose 102 H (70-99(Fasting)) mg/dl POC Glucose 114 H (70-99) mg/dl Hemoglobin A1c 6.1 H (4.5-5.6) % Urine Protein 1+ H (Negative) Urine Blood Trace-lysed H (Negative) 01/17/24 01/17/24 Range/Units 04:24 11:44 RBC 3.70 L (4.20-5.40) M/uL Hgb 11.3 L (12.0-16.0) g/dl Hct 34.1 L (37.0-47.0) % Neut # (Auto) (1.40-6.50) K/uL [place] # (Auto) 0.81 H (0.11-0.59) K/uL Chloride 109 H (98-107) mmol/L BUN 26 H (6-23) mg/dl BUN/Creatinine Ratio 25.5 H (10-20) Glucose 113 H (70-99(Fasting)) mg/dl POC Glucose 130 H (70-99) mg/dl Hemoglobin A1c (4.5-5.6) % Urine Protein (Negative) Urine Blood (Negative)
--- NOTE | 2024-01-17 15:56 | XRay Report ---
XR hip LT 2V w pelvis CLINICAL HISTORY: left hip pain TECHNIQUE: 2 views of the right hip and single frontal view of the pelvis were obtained. Comparison: None available at the time of this dictation. FINDINGS: There is no evidence of an acute fracture. Total hip arthoplasty hardware is seen without perihardwar e lucency or hardware fracture. Posterior fixation hardware is seen in the lumbar spine. No soft tiss ue abnormality is seen. IMPRESSION: No evidence of acute osseous injury. ACT 112: Negative or not required by law. Electronically signed by: Grant Graham M.D. 01/17/2024 3:53 PM
[2024-01-17] MEDS: LOSARTAN POTASSIUM 25 MG TAB PO SCH (16:07)
[2024-01-17 17:09] LABS: Appearance Synovial Fluid Cloudy; Color Synovial Fluid Pale Yellow; RBC Synovial Fluid Auto 15000 /uL; Source Synovial Fluid Left Knee; WBC Synovial Fluid Auto 35850 /ul (0-200)
[2024-01-17] MEDS ORDERED: LOSARTAN POTASSIUM 25 MG TAB PO SCH (21:00)
[2024-01-18] MEDS: HYDROmorphone INJ 0.5 MG/0.5 ML SYR IV PRN (01:13)
[2024-01-18 07:16] LABS: BUN Creatinine Ratio 17.6 (10-20); Calcium 8.9 mg/dl (8.6-10.3); Creatinine Clr Calc Pharmacy 46.3 ml/min; Est GFR (African American) 52.4 ml/min; Est GFR (Non-African American) 45.3 ml/min; Uric Acid 6.2 mg/dl (2.6-7.2)
[2024-01-18 07:19] LABS: Mean Corpuscular Hemoglobin 30.2 pg (25.0-34.0); Mean Corpuscular Hgb Conc 32.4 g/dL (32.0-36.0); Mean Corpuscular Volume 93.4 fL (80.0-100.0); Mean Platelet Volume 10.4 fL (9.4-12.4); Platelet Count 248 K/uL (130-400); RDW Coefficient of Variation 12.9 % (11.5-14.5); RDW Standard Deviation 44.5 fL (36.4-46.3); Red Blood Count 3.64 M/uL (4.20-5.40)
--- NOTE | 2024-01-18 07:28 | Orthopedic Progress Note ---
Date of Service January 18, 2024 Assessment & Plan (1) Closed right hip fracture: NPO. Plan for surgery today. ESR and crp elevated. Left knee aspiration shows elevated wbc and polys. Gram stain negative. Cultures and crystal analysis pending. Likely has gout/pseudogout involving the left knee. (2) Effusion, left knee: Subjective . 73 year old patient with right hip fx, left knee effusion. Complaining of pain still in left knee. Aspiration performed yesterday. Still has right groin pain. Review of Systems All systems reviewed & are unremarkable except as noted in HPI & below. Physical Exam . alert and oriented. NAD VSS Left knee: + effusion, tender to palpation. Unable to left either leg. No motion of the right hip done at this time. Results & Data Results & Data Laboratory Results . Diagnostic Findings . PG Care Time/CCT Total # of Minutes Spent Total Time Spent with Patient: Total time spent is greater than 50% in coordination of care (as documented) at patient's floor/unit and/or counseling patient: Coding Level of Care Code 20446 SUB INP/OBS CARE MIN Diagnoses Closed right hip fracture S72.001A Effusion, left knee M25.462
[2024-01-18] MEDS: ACETAMINOPHEN 325 MG TAB PO PRN (08:06)
[2024-01-18] MEDS ORDERED: INFLUENZA VACC TS2024-25(65y+)/PF (IIV3) 0.5mL Syr IM ONE (09:55)
[2024-01-18] MEDS ORDERED: BUPIVACAINE 0.5 % 5 MG/1 ML PF 10ML VIAL ONE (12:54)
--- NOTE | 2024-01-18 13:07 | History & Physical Bridge Note ---
Date of Service January 18, 2024 History & Physical Bridge Note I have examined the patient, reviewed the History & Physical and in the interval since the performance of the History & Physical I have noted the following changes of clinical significance: no changes noted
[2024-01-18] MEDS ORDERED: fentaNYL citrate PF 100 MCG/2 ML VIAL ONE (13:19)
[2024-01-18] MEDS ORDERED: ONDANSETRON INJ 2 MG/ML 2 ML VIAL ONE (13:19)
[2024-01-18] MEDS ORDERED: LIDOCAINE 2% 2 ML VIAL/AMP(20MG/ML) INFIL ONE (13:19)
[2024-01-18] MEDS ORDERED: PROPOFOL IV EMULSION 10 MG/ML 20 ML VIAL IV ONE ×4 (13:19→14:56)
[2024-01-18] MEDS ORDERED: MIDAZOLAM HCL 1 MG/ML 2ML VIAL ONE (13:20)
--- NOTE | 2024-01-18 13:29 | Anesthesiology Consultation ---
Date of Service January 18, 2024 Assessment & Plan Chart Review Chart Review: Acceptable Risk for Surgery and Patient NOT seen in Pre Admission Testing Consults Requested none ASA ASA2 Proposed Anesthesia Anesthesia Type: General and MAC Spinal Risk / Benefits Reviewed With: PT / POA / Parent / Guardian, Accepts Plan and Informed Consent Obtained History Surgery Operation Date: 01/18/24 13:45 Proposed Procedures p Right Long Troch Nail - Arvin George MD Height/Weight Height: 5 ft 3 in Weight: 95.5 kg Allergies Allergy/AdvReac Type Severity Reaction Status Date / Time Penicillins Allergy Unknown RASH Verified 01/16/24 21:45 simvastatin AdvReac Unknown MUSCLE Verified 01/16/24 21:45 CRAMPING Medications Home Medications Medication Instructions Recorded Confirmed Last Taken acetaminophen 650 mg 650 mg PO DIRECTED PRN Pain 01/16/24 01/17/24 Unknown tablet,extended release (Tylenol Arthritis Pain) multivitamin 1 tab PO DAILY 01/16/24 01/17/24 Unknown Pre/Probiotic 1 cap PO DAILY 01/17/24 01/17/24 Unknown Super Beets 1 cap PO DAILY 01/17/24 01/17/24 Unknown Vitamin For Kidney 2 cap PO DAILY 01/17/24 01/17/24 Unknown Vitamin For Liver 1 cap PO DAILY 01/17/24 01/17/24 Unknown Active Medications Generic Name Dose Route Start Last Admin Trade Name Luis Miguelq PRN Reason Stop Dose Admin Acetaminophen 650 mg 01/16/24 21:35 01/18/24 08:06 Acetaminophen 325 Mg Tab PO 02/15/24 21:34 650 mg QID PRN Administration pain/fever Hydromorphone HCl 0.5 mg 01/17/24 10:50 01/18/24 10:53 Hydromorphone Inj 0.5 Mg/0.5 Ml Syr IV 01/31/24 10:49 0.5 mg Q4H PRN Administration Pain Scale 4,5,6 Insulin Aspart 0 units 01/17/24 01:40 01/18/24 13:12 Insulin Aspart Per Unit Charge SC 02/16/24 01:39 Not Given Q6 EMERSON Losartan Potassium 25 mg 01/17/24 14:00 01/18/24 08:06 Losartan Potassium 25 Mg Tab PO 02/16/24 13:59 25 mg QAM EMERSON Administration Ondansetron HCl 4 mg 01/17/24 10:51 01/17/24 11:23 Ondansetron Inj 2 Mg/Ml 2 Ml Vial IV 02/16/24 10:50 4 mg Q6H PRN Administration Nausea Oxycodone HCl 5 - 10 mg 01/16/24 21:35 01/18/24 00:47 Oxycodone Hcl Ir 5 Mg Tab (Immediate Release) PO 01/30/24 21:34 10 mg QID PRN Administration Pain NPO Date Last Intake of Fluids: 01/17/24 Time Last Intake of Fluids: 23:00 Last Intake of Fluids Comment: sips with meds today Date Last Intake of Solids: 01/15/24 Exercise / Class Metabolic Activity II 4-5 Yardwork/Stairs/Walk up hill Past Anesthesia History No Hx of Anesthesia Complications and No Family Hx of Anesthesia Complications History of PONV No Hx of PONV and No Hx of Motion Sickness Social History Smoking Status: Current some day smoker Hx Alcohol Use: No Hx Substance Use: No Review of Systems ROS Unobtainable: All systems reviewed & are unremarkable except as noted in HPI & below Physical Exam Vital Signs Last Vital Signs Temp 37.1 C 01/18/24 13:04 Pulse 85 01/18/24 13:04 Resp 18 01/18/24 13:04 BP 109/90 01/18/24 13:04 Pulse Ox 94 01/18/24 13:04 O2 Del Method Room Air 01/18/24 13:04 O2 Flow Rate 2 01/17/24 12:00 Testing Laboratory Results 01/18/24 06:04 01/18/24 06:04 PT 10.2 Seconds (9.0-12.0) 01/16/24 18:45 INR 0.9 (0.9-1.1) 01/16/24 18:45 APTT 25 Seconds (21-31) 01/16/24 18:45 Hemoglobin A1c 6.1 % (4.5-5.6) H 01/16/24 18:45 Urine Color Yellow 01/16/24 20:03 Urine Appearance Clear (Clear) 01/16/24 20:03 Urine pH 5.5 (4.5-7.5) 01/16/24 20:03 Ur Specific [place] 1.025 (1.000-1.030) 01/16/24 20:03 Urine Protein 1+ (Negative) H 01/16/24 20:03 Urine Glucose (UA) Negative (Negative) 01/16/24 20:03 Urine Ketones Negative (Negative) 01/16/24 20:03 Urine Nitrite Negative (Negative) 01/16/24 20:03 Ur Leukocyte Esterase Negative (Negative) 01/16/24 20:03 Urine RBC 0-2 /hpf (0-2) 01/16/24 20:03 Urine WBC 0-5 /hpf (0-5) 01/16/24 20:03 Ur Epithelial Cells 0-2 /hpf (0-2) 01/16/24 20:03 Blood Type A Positive 01/17/24 04:24 Antibody Screen NEGATIVE 01/17/24 04:24 01/17/24 16:00 Gram Stain - Final Knee,Left Aerobic and Anaerobic Culture - Preliminary No growth to date. 01/18/24 06:17 POC Glucose 104 H Electrocardiogram Date: 01/16/24 Findings: + NSR @ Echocardiogram Date: 01/17/24 EF: 55-60 LV Function: normal
[2024-01-18] MEDS ORDERED: ONDANSETRON INJ 2 MG/ML 2 ML VIAL IV PRN (13:36)
[2024-01-18] MEDS ORDERED: ePHEDrine sulfate 50 MG/ML AMP IV PRN (13:36)
[2024-01-18] MEDS ORDERED: fentaNYL citrate PF 100 MCG/2 ML VIAL IV PRN (13:36)
[2024-01-18] MEDS ORDERED: ATROPINE SULFATE 0.1 MG/ML 10ML SYR IV PRN (13:36)
[2024-01-18] MEDS: ceFAZolin 2000MG 2,000 MG/15 ML SYR IV ONE (14:05)
[2024-01-18] MEDS ORDERED: PHENYLEPHRINE 100MCG/ML 10ML SYR IV ONE (14:10)
[2024-01-18] MEDS: TRANEXAMIC ACID / 0.7% NACL 1000MG/100ML BAG IV ONE (14:15)
--- NOTE | 2024-01-18 14:36 | Hospitalist Progress Note ---
Date of Service January 18, 2024 Assessment & Plan (1) Closed right hip fracture: Plan: Denied history of fall Developed pain on trying to get up from bed Hip CT showed nondisplaced fracture of right femur L Knee XR noted moderate osteoarthritis Pain control Concern for pathological nontraumatic fracture Vit D level pending Ortho eval noted s/p R troch nail on 01/17 PT/OT eval post op (2) Hypertensive urgency: Plan: Review of EPIC flowsheet show patient's BP has been high in the past. Last BP noted was 178/102 in 01/10/2023 Hence Likely has Hypertension, though not on any medication per med rec/EPIC review Worsened hypertension in setting of pain from hip fracture. Continue losartan given on admission Optimize BP control and monitor TTE: LV normal, mild conc LVH, EF 55-60%, Grade I DD, mild AV sclerosis without stenosis, mild mitral calcification, trace MR, trace TR (3) Diabetes mellitus: Plan: Diet controlled HbA1c today is 6.1 ISS Code status: Full DVT PPx: aspirin 81mg BID per ortho Dispo: Per PT/OT recs Admission and Anticipated Discharge Date Admission Date: January 16, 2024 Subjective Pt was seen postop. States that she has a stabbing pain on the right postop. States she will be getting pain meds soon. Otherwise denies acute concerns. Review of Systems Review of Systems: All systems reviewed & are unremarkable except as noted in Subjective Physical Exam Physical Exam: General: Alert, oriented. No acute distress Psych: Appropriate mood and affect Neuro: difficulty with movements in the bed but can move lower extremities HEENT: NC/AT CV: RRR Resp: no increased effort of breathing Abdomen: Soft, nontender, nondistended Extremities:SCDs on lower extremities bilaterally. Results & Data Results & Data Vital Signs (Past 12 Hours) Vital Signs Temp Pulse Pulse Resp BP BP Pulse Ox 01/18/24 13:04 37.1 C 85 18 109/90 94 01/18/24 11:14 37.3 C 84 18 164/77 H 91 01/18/24 11:00 01/18/24 09:25 37.7 C H 01/18/24 07:20 76 01/18/24 07:00 37.9 C H 81 16 168/83 H 91 01/18/24 07:00 01/18/24 03:58 37.6 C H 76 20 151/79 H 92 Pulse Ox O2 Del Method O2 Del Method 01/18/24 13:04 Room Air 01/18/24 11:14 Room Air 01/18/24 11:00 98 Room Air 01/18/24 09:25 01/18/24 07:20 01/18/24 07:00 Room Air 01/18/24 07:00 91 Room Air 01/18/24 03:58 Room Air
[2024-01-18] MEDS ORDERED: ePHEDrine sulfate 50 MG/5 ML SYR ONE (14:56)
[2024-01-18] MEDS: BUPIVACAINE/EPINEPHRINE 0.5% MPF 1:200,000 30 ML VIAL ONE (15:02)
[2024-01-18] MEDS: ceFAZolin 2,000 MG/15 ML IV PUSH IV ONE (15:03)
--- NOTE | 2024-01-18 15:18 | Operative Report ---
PG Post Operative Report Pre & Post Diagnosis Operation Date: 01/18/24 13:45 Pre-Op Diagnosis: Right nondisplaced basicervical femoral neck fracture/hip fracture. Post-Op Diagnosis: Right nondisplaced basicervical femoral neck fracture/hip fracture. I identified the patient and participated in the time-out.: Yes Procedure Operation Date: 01/18/24 13:45 Actual Procedures p Right Long Troch Nail(Right) - Arvin George MD Surgeon Arvin George MD Barrel Finisher Torrey Vallecillo PA-C Estimated Blood Loss 100 Findings Consistent with Post-Op Diagnosis Specimens None Anesthesia Type Spinal MAC Complications none Indications Patient is a 73-year-old female who was sent a couple days of a hip pain and discomfort. She recently got up and felt a crack in her hip is having difficulty ambulating. She developed emergency room where x-rays revealed nondisplaced basicervical femoral neck fracture. She denies any history of falls. She was having admitted by the medicine service, medically optimized indicated for surgical fixation. She denied any pre-existing hip pain in this h ip but until just a couple days ago. Description of Procedure Operative implants consist of: 1. Synthes right 340 mm x 11 mm long trochanteric nail. 2. Synthes 90 mm helical blade. 3. 5 mm x 42 mm distal interlocking screw The patient was taken to the operating, identified, placed on the operating table in the supine position with all contractors were appropriately padded. IV antibiotics were provided by anesthesia team. A spinal anesthetic was implemented. The patient was then placed on the fracture table. The right leg was placed in boot traction the left leg was placed in a well-leg martinez. I applied some longitudinal traction to the right leg and internally rotated foot so the knee Pointed to the ceiling. X-ray was brought in. The fracture looked anatomically aligned. The right hip was then scrubbed with Hibiclens prepped in the DuraPrep and then draped in the usual sterile fashion. A curvilinear incision was made just proximal to the tip of the trochanter. She had a very thick soft tissue envelope. I just dissected down to the gluteal fascia and then made an incision. A guidewire was placed just lateral to the ti p of the trochanter on the AP and lateral films. It was Fischer down the IM canal. Some minor adjustments were made. This was then overreamed with a large Synthes reamer. The ball-tipped guidewire was then exchanged for the sharp guidewire. We advanced down the canal. The canal length was measured and a 340 mm nail was selected. A 12 and half millimeter reamer was placed over the guidewire and advanced down the canal. A 340 mm x 11 mm right long trochanteric nail was then advanced over the guidewire. The guidewire was removed. I tapped the nail into good position. The lateral aiming arm was attached. A stab incision was made. The lateral aiming arm was advanced the lateral aspect the femur. A guidewire was placed in the central aspect of the femoral head neck on both AP and lateral planes. This is measured in the 90 mm helical blade was selected. The triple reamer was set at 90. The cortical drill was used to breach the cortex and then the triple reamer was then used to ream the canal for the helical blade. The helical blade was placed and tapped into position. The proximal setscrew was tightened. I then compressed the fracture with the compression device. Attention drawn toward distal interlocking. Using a perfect [place] technique the distal interlocking screw was placed through the dynamic hole. It was made through a stab incision. Some final x- rays were obtained. Attention drawn toward closing. All wounds irrigated extensively. The gluteal fascia was then closed with #1 Vicryl suture in running fashion. The subcutaneous tissues of the proximal w ound were closed in 3 layers while the other ones were just closed in 2 layers. The skin was closed with skin radha. Leg was cleaned and dried and a sterile dressing with Xeroform, 4 x 4's, ABD pad and foam tape was applied. The patient was then taken off the fracture table and transported to the recovery room in stable condition. The patient tolerated the procedure well and there were no co mplications. Torrey Vallecillo, my physician fitness assistant, was present for the entire procedure. His assistance was required for proper patient positioning, prepping and draping, surgical exposure, retraction, perform the technical details of the operation, placement of the hardware, closure of the incision sites and placement of the sterile bandage. I attest to the content of the Intraoperative Record and any orders documented therein. Any exceptions are noted below.
--- NOTE | 2024-01-18 15:29 | Fluoroscopy Report ---
FL hip RT 2-3V CLINICAL HISTORY: Right troch nailacute fracture of the right hip COMPARISON STUDY: Radiographs 01/17/2024 FLUOROSCOPY TIME: 109.3 seconds FLUOROSCOPY IMAGES: 4 EXPOSURE DOSE: 38.03 mGy FINDINGS: Intertrochanteric nail with medullary hemanth fixates the acute right proximal femoral fracture with satisfactory alignment. IMPRESSION: Fluoroscopic assistance above. ACT 112: Negative or not required by law. Electronically signed by: Julio Sanchez M.D. 01/18/2024 3:28 PM
[2024-01-18] MEDS: ACETAMINOPHEN 1,000 MG/100 ML VIAL IV STA (16:04)
--- NOTE | 2024-01-18 16:07 | Anesthesiology Progress Note ---
Date of Service January 18, 2024 Anesthesia Post Procedure Vital Signs Vital Signs: Temp Pulse Pulse Pulse Resp BP BP 01/18/24 15:50 97 H 18 143/81 H 01/18/24 15:40 95 H 18 147/76 H 01/18/24 15:30 94 H 20 135/65 01/18/24 15:20 36.3 C L 93 H 17 118/100 01/18/24 13:04 37.1 C 85 18 109/90 01/18/24 11:14 37.3 C 84 18 164/77 H 01/18/24 11:00 01/18/24 09:25 37.7 C H 01/18/24 07:20 76 01/18/24 07:00 37.9 C H 81 16 168/83 H 01/18/24 07:00 01/18/24 03:58 37.6 C H 76 20 151/79 H 01/18/24 00:05 37.6 C H 85 20 177/78 H 01/17/24 23:36 75 01/17/24 22:00 01/17/24 20:07 37.5 C 82 20 175/79 H 01/17/24 16:14 36.8 C 81 18 165/78 H Pulse Ox Pulse Ox O2 Del Method O2 Del Method O2 Flow Rate 01/18/24 15:50 95 Room Air 0 01/18/24 15:40 99 Room Air 0 01/18/24 15:30 95 Oxymask 4 01/18/24 15:20 99 Oxymask 4 01/18/24 13:04 94 Room Air 01/18/24 11:14 91 Room Air 01/18/24 11:00 98 Room Air 01/18/24 09:25 01/18/24 07:20 01/18/24 07:00 91 Room Air 01/18/24 07:00 91 Room Air 01/18/24 03:58 92 Room Air 01/18/24 00:05 92 Room Air 01/17/24 23:36 01/17/24 22:00 Room Air 01/17/24 20:07 93 Room Air 01/17/24 16:14 97 Room Air Pain Intensity Right Hip: Pain Intensity: 9 Left Knee: Pain Intensity: 8 Transfer of Care Handoff Completed per policy Notes Mental Status: alert / awake / arousable Patient Amnestic to Procedure: Yes Nausea / Vomiting: adequately controlled Pain: adequately controlled Airway Patency, RR, SpO2: stable & adequate BP & HR: stable & adequate Hydration State: stable & adequate Anesthetic Complications: no major complications apparent and Pt Satisfied with anesthetic care Notes: Patient notes right lateral neck tenderness and numbness/tiingling of digits 1, 2, and 3 on right hand. Suspect irritation from positioning during surgery. Reassured patient that this typically resolves however will follow up with patient. IV tylenol for neck pain.
[2024-01-18] MEDS: ACETAMINOPHEN 1000 MG/100 ML IV IV ONE (17:09)
[2024-01-18] MEDS ORDERED: LORazepam 0.5 MG TAB PO PRN (19:39)
[2024-01-18] MEDS ORDERED: Nursing to Pharmacy Communication SCH (20:15)
[2024-01-18] MEDS: LIDOCAINE 5% 1 PATCH TD STA (20:26)
[2024-01-18] MEDS: ASPIRIN 81 MG ECTAB PO SCH (20:27)
[2024-01-18] MEDS: LORazepam 0.5 MG TAB PO STA (20:27)
[2024-01-18] MEDS: ceFAZolin 2000MG 2,000 MG/15 ML SYR IV SCH (20:27)
[2024-01-18] MEDS: LOSARTAN POTASSIUM 25 MG TAB PO STA (20:27)
[2024-01-18] MEDS: INSULIN ASPART PER UNIT CHARGE SC SCH (20:28)
[2024-01-18] MEDS: HYDROmorphone INJ 1 MG/ML SYRINGE IV PRN (21:25)
[2024-01-19 01:04] LABS: Magnesium 1.9 mg/dl (1.7-2.4)
[2024-01-19] MEDS: POLYETHYLENE (MIRALAX) 17 GM PACK PO STA (01:17)
[2024-01-19] MEDS: DOCUSATE SODIUM/SENNA 50/8.6MG TAB PO SCH (01:17)
[2024-01-19] MEDS: SODIUM CHLORIDE 0.9% 1,000 ML IV ONE (01:18)
[2024-01-19 01:30] LABS: Appearance Urine Clear (Clear); Bacteria Urine Automated None Seen (None Seen); Bilirubin Urine Negative (Negative); Blood Urine 2+ (Negative); Color Urine Yellow; Epithelial Cell Urine Auto 0-2 /hpf (0-2); Glucose Urine UA Negative (Negative); Granular Casts Urine Present /lpf (None Prsent); Ketones Urine 1+ (Negative); Leukocyte Esterase Urine 1+ (Negative); Nitrite Urine Negative (Negative); Protein Urine 2+ (Negative); Specific Gravity Urine 1.019 (1.000-1.030); Urobilinogen Urine Negative (Negative); WBC Urine Automated 21-50 /hpf (0-5); pH Urine 5.5 (4.5-7.5)
--- NOTE | 2024-01-19 02:08 | Communication Note ---
Date of Service: January 19, 2024 Patient noted to be febrile as per RN. No cough or diarrhea symptoms. Postop pain and constipation as per RN. UA WBC esterase AP Complicated UTI Urine CS, Cefepime
[2024-01-19] MEDS: CEFEPIME 2000MG 2,000 MG/20 ML SYR IV SCH (04:00)
[2024-01-19 07:07] LABS: Basophils # (auto) 0.05 K/uL (0.00-0.20); Basophils % (auto) 0.4 %; Eosinophils # (auto) 0.08 K/uL (0.00-0.50); Eosinophils % (auto) 0.6 %; Hematocrit (blood only) 32.2 % (37.0-47.0); Hemoglobin 10.3 g/dl (12.0-16.0); Immature Granulocytes # (auto) 0.09 K/uL (0.01-0.20); Immature Granulocytes % (auto) 0.7 %; Lymphocytes # (auto) 1.16 K/uL (1.20-3.40); Lymphocytes % (auto) 8.7 %; Mean Corpuscular Hemoglobin 29.7 pg (25.0-34.0); Mean Corpuscular Volume 92.8 fL (80.0-100.0); Mean Platelet Volume 10.2 fL (9.4-12.4); Monocytes # (auto) 1.47 K/uL (0.11-0.59); Neutrophils # (auto) 10.55 K/uL (1.40-6.50); Neutrophils % (auto) 78.6 %; Platelet Count 223 K/uL (130-400); RDW Coefficient of Variation 12.5 % (11.5-14.5); Red Blood Count 3.47 M/uL (4.20-5.40)
[2024-01-19 07:21] LABS: BUN Creatinine Ratio 17.1 (10-20); Calcium 8.8 mg/dl (8.6-10.3); Creatinine Clr Calc Pharmacy 47.1 ml/min
--- NOTE | 2024-01-19 07:58 | Orthopedic Progress Note ---
Date of Service January 19, 2024 Assessment & Plan (1) Effusion, left knee: (2) Closed right hip fracture: Plan: 73-year-old female postop day 1 from IM nailing of a right basicervical femoral neck fracture. She also has got significant knee effusions. She seems to be doing pretty well this morning. Still pretty groggy. The knees are feeling a little bit better. They are not really swollen. Crystal analysis is negative and the cultures are no growth. Plan: 1. DVT prophylaxis including Thiede teds, SCDs, aspirin twice a day for 6 weeks. 2. PT/OT. She can fully weight-bear as tolerated. 3. Bilateral knee effusions. It would be helpful to place her on some NSAIDs if possible. She may benefit from a dose of steroids. Cultures been no growth. Will follow this along. 4. Disposition. She is good to be orthopedically okay for discharge anytime medically stable. I do see her back 2 to 3 weeks out from surgery. She is weightbearing as tolerated on the right leg. Routine wound care. Any orthopedic questions can be directly [phone]. Admission and Anticipated Discharge Date Admission Date: January 16, 2024 Subjective 73-year-old female postop day 1 from IM nailing of a right basicervical femoral neck fracture. She is pretty sleepy this morning. No real particular pain while lying in bed. Her knees are feeling a little bit better. Physical Exam Physical Exam: Physical examination was a pleasant elderly female. Had to wake her this morning. Examination of the right hip and leg reveals leg to be well aligned. Dressings clean dry and intact. She is neurologically intact. Examination of the knees reveal some small knee effusions. Mild tenderness. No warmth. She is neurologically intact. Results & Data Vital Signs (Past 12 Hours) Vital Signs Temp Pulse Pulse Pulse Resp BP Pulse Ox 01/19/24 07:16 37.4 C 90 18 162/86 H 92 01/19/24 07:00 93 H 01/19/24 04:37 38.1 C H 107 H 16 180/80 H 93 01/18/24 23:35 36.8 C 103 H 20 174/81 H 92 01/18/24 23:12 01/18/24 23:04 99 H 01/18/24 22:28 Pulse Ox O2 Del Method O2 Del Method 01/19/24 07:16 Room Air 01/19/24 07:00 01/19/24 04:37 Room Air 01/18/24 23:35 Room Air 01/18/24 23:12 95 Room Air 01/18/24 23:04 01/18/24 22:28 Room Air Laboratory Results Hemoglobin is 10.3. Hematocrit 32.2. White blood cell count 13.40. Electrolytes are stable. Culture results are no growth to date. This is from the knee joint aspirate. Crystal analysis from the joint fluid was negative for gout or pseudogout.
[2024-01-19] MEDS: LOSARTAN POTASSIUM 50 MG TAB PO SCH (08:13)
[2024-01-19] MEDS: MULTIVITAMIN TAB PO SCH (08:13)
[2024-01-19] MEDS: ADVANCED PROBIOTIC 625 MG CAPSULE PO SCH (08:13)
[2024-01-19] MEDS ORDERED: SUPER BEETS PO SCH (09:00)
[2024-01-19] MEDS ORDERED: [UNRECOGNIZED DRUG - OTHER] PO SCH (09:00)
[2024-01-19] MEDS ORDERED: [UNRECOGNIZED DRUG - OTHER] PO SCH (09:00)
[2024-01-19] MEDS: CHOLECALCIFEROL 125 MCG (5,000 UNITS) TAB PO SCH (10:36)
--- NOTE | 2024-01-19 13:59 | Hospitalist Progress Note ---
Date of Service January 19, 2024 Assessment & Plan (1) Closed right hip fracture: Plan: Denied history of fall Developed pain on trying to get up from bed Hip CT showed nondisplaced fracture of right femur L Knee XR noted moderate osteoarthritis Pain control Concern for pathological nontraumatic fracture Vit D level decreased, started on supplement Ortho eval noted s/p R troch nail on 01/17 PT/OT eval post op (2) Hypertensive urgency: Plan: Review of EPIC flowsheet show patient's BP has been high in the past. Last BP noted was 178/102 in 01/10/2023 Hence Likely has Hypertension, though not on any medication per med rec/EPIC review Worsened hypertension in setting of pain from hip fracture. Continue losartan given on admission Optimize BP control and monitor TTE: LV normal, mild conc LVH, EF 55-60%, Grade I DD, mild AV sclerosis without stenosis, mild mitral calcification, trace MR, trace TR (3) Diabetes mellitus: Plan: Diet controlled HbA1c today is 6.1 ISS Code status: Full DVT PPx: aspirin 81mg BID per ortho Dispo: Per PT/OT recs Admission and Anticipated Discharge Date Admission Date: January 16, 2024 Subjective Pt was seen laying in bed. states that her pain is more controlled than not. Review of Systems Review of Systems: All systems reviewed & are unremarkable except as noted in Subjective Physical Exam Physical Exam: General: Alert, oriented. No acute distress Psych: Appropriate mood and affect Neuro: difficulty with movements in the bed but can move lower extremities HEENT: NC/AT CV: RRR Resp: no increased effort of breathing Abdomen: Soft, nontender, nondistended Extremities: moving lower extremities bilaterally. Hip bandaged Results & Data Results & Data Vital Signs (Past 12 Hours) Vital Signs Temp Pulse Pulse Pulse Resp BP Pulse Ox 01/19/24 11:10 37.5 C 88 18 162/83 H 95 01/19/24 07:16 37.4 C 90 18 162/86 H 92 01/19/24 07:00 93 H 01/19/24 04:37 38.1 C H 107 H 16 180/80 H 93 O2 Del Method 01/19/24 11:10 Room Air 01/19/24 07:16 Room Air 01/19/24 07:00 01/19/24 04:37 Room Air
[2024-01-19] MEDS: INFLUENZA VACC TS2024-25(65y+)/PF (IIV3) 0.5mL Syr IM ONE (17:39)
[2024-01-19] MEDS: LABETALOL HCL IV 5 MG/ML 20ML IV PRN (19:30)
[2024-01-19] MEDS: HYDROmorphone INJ 0.5 MG/0.5 ML SYR IV STA (20:33)
[2024-01-19] MEDS: hydrALAZINE HCL 20 MG/ML VIAL IV STA (20:33)
--- NOTE | 2024-01-19 22:04 | CT Scan Report ---
Exam(s): CT HEAD Without Contrast EXAM: CT Head Without Intravenous Contrast CLINICAL HISTORY: Reason for exam: arriaza, htn crisis. TECHNIQUE: Axial computed tomography images of the head/brain without intravenous contrast. CTDI is 36 mGy and DLP is 625 mGy-cm. Automated exposure control was utilized for the study. A dose lowering technique was utilized adhering to the principles of ALARA. COMPARISON: No relevant prior studies available. FINDINGS: Brain: No hemorrhage. No apparent acute cortical infarct. No mass lesion or midline shift. Ventricles: No hydrocephalus. Bones/joints: No acute fracture. Soft tissues: Unremarkable. Sinuses: No acute sinusitis. Mastoid air cells: No mastoid effusion. Orbits: No acute process. Cataract surgery IMPRESSION: No acute intracranial process. Electronically signed by: George Erazo M.D. 01/19/24 22:03 PM
[2024-01-19] MEDS: LOSARTAN POTASSIUM 50 MG TAB PO STA (23:00)
[2024-01-20 06:53] LABS: Hematocrit (blood only) 33.5 % (37.0-47.0); Hemoglobin 10.9 g/dl (12.0-16.0); Mean Corpuscular Hemoglobin 29.9 pg (25.0-34.0); Mean Corpuscular Hgb Conc 32.5 g/dL (32.0-36.0); Mean Corpuscular Volume 91.8 fL (80.0-100.0); Mean Platelet Volume 10.6 fL (9.4-12.4); Platelet Count 269 K/uL (130-400); RDW Coefficient of Variation 12.4 % (11.5-14.5); RDW Standard Deviation 41.9 fL (36.4-46.3); Red Blood Count 3.65 M/uL (4.20-5.40); White Blood Count 12.33 K/ul (4.8-10.8)
[2024-01-20 07:17] LABS: BUN Creatinine Ratio 20.9 (10-20); Calcium 9.1 mg/dl (8.6-10.3); Creatinine Clr Calc Pharmacy 47.9 ml/min; Potassium 3.9 mmol/L (3.5-5.1)
[2024-01-20] MEDS: LOSARTAN POTASSIUM 50 MG TAB PO SCH (08:25)
--- NOTE | 2024-01-20 08:45 | Hospitalist Progress Note ---
Date of Service January 20, 2024 Assessment & Plan (1) Hypertensive urgency: (2) Closed right hip fracture: (3) Diabetes mellitus: (4) Effusion, left knee: Plan Pt is a 73yoF with medical history significant for hypertension, hyperlipidemia, DM2 diet-controlled, anal cancer status post surgery/chemoradiation. Closed right hip fracture Denied history of fall Developed pain on trying to get up from bed Hip CT showed nondisplaced fracture of right femur L Knee XR noted moderate osteoarthritis Concern for pathological nontraumatic fracture. Vit D level was decreased, started on supplement Orthopedics was consulted, appreciate recs. Recommended the following: -pt is s/p R troch nail on 01/18/24 -"DVT prophylaxis including thigh-high teds, SCDs, aspirin twice a day for 6 weeks. PT/OT. She can fully weight-bear as tolerated on the right leg. Pain control doing okay with current pain regimen. disposition she is okay for discharge anytime medically stable. I did see her back 2 to 3 weeks out from surgery date." Hypertensive urgency Review of EPIC flowsheet shows patient's BP has been high in the past. Last BP noted was 178/102 in 01/10/2023 Hence Likely has Hypertension, though not on any medication per med rec/EPIC review Worsened hypertension in setting of pain from hip fracture. Continue losartan given on admission, added amlodipine 5mg BID with prn labetalol Optimize BP control and monitor TTE: LV normal, mild conc LVH, EF 55-60%, Grade I DD, mild AV sclerosis without stenosis, mild mitral calcification, trace MR, trace TR BP currently controlled Complicated UTI Pt with fever on 01/18, leukocytosis UA suggestive of infection, urine Cx pending On IV cefepime, Continue Adjust antibiotics based on culture Oropharyngeal candidiasis Throat pain Midline chest pain Nausea Patient noting discomfort in her oropharynx with throat going down to the chest wall On exam, noted thrush like changes on tongue Strep testing ordered to rule out strep as an acute cause Respiratory bio fire pending Chest x-ray ordered and pending KUB ordered in the setting of recent surgery EKG and troponin ordered and pending Will start nystatin swish and swallow treatment As needed heartburn medications of pantoprazole scheduled with as needed Maalox and famotidine Zofran for nausea as needed Continue to monitor Acute Blood Loss Anemia Hgb with acute slight drop postop Continue to monitor Diabetes mellitus: Diet controlled HbA1c 6.1 ISS PCP follow up hx of anal cancer In 2004 Diet: HH/DMII Code status: Full DVT PPx: aspirin 81mg BID per ortho Dispo: Per PT/OT recs- acute rehab. Likely on Tuesday Admission and Anticipated Discharge Date Admission Date: January 16, 2024 Subjective Patient was seen laying in bed. States she has been having this sensation in her throat that feels sore goes down to the middle of her chest. States she still has not had a bowel movement but she is passing gas. Review of Systems Review of Systems: All systems reviewed & are unremarkable except as noted in Subjective Physical Exam Physical Exam: General: Alert, oriented. No acute distress Psych: Appropriate mood and affect Neuro: difficulty with movements in the bed but can move lower extremities HEENT: NC/AT CV: RRR Resp: no increased effort of breathing Abdomen: Soft, nontender, nondistended Extremities: moving lower extremities bilaterally. Hip bandaged Results & Data Results & Data Vital Signs (Past 12 Hours) Vital Signs Temp Pulse Pulse Resp BP BP Pulse Ox 01/20/24 07:03 37.7 C H 92 H 18 196/78 H 94 01/20/24 06:14 94 H 01/20/24 03:41 37.2 C 96 H 20 196/74 H 93 01/20/24 03:00 01/19/24 23:58 91 H 01/19/24 23:26 37.3 C 84 18 93 01/19/24 23:00 01/19/24 22:54 168/75 H 01/19/24 21:36 183/78 H Pulse Ox O2 Del Method O2 Del Method 01/20/24 07:03 Room Air 01/20/24 06:14 01/20/24 03:41 Room Air 01/20/24 03:00 93 Room Air 01/19/24 23:58 01/19/24 23:26 Room Air 01/19/24 23:00 93 Room Air 01/19/24 22:54 01/19/24 21:36 Diagnostic Findings Chest X-Ray 01/16/24 19:08 XR chest 1V portable CLINICAL HISTORY: Hip pain. COMPARISON STUDY: Chest radiograph July 05, 2006. FINDINGS: Lung volumes are normal. Lungs are clear. There is no pneumothorax or pleural effusion. Mild cardiomegaly. Mediastinal contours are normal. There is no evidence for pulmonary edema. IMPRESSION: No acute cardiopulmonary findings. ACT 112: Negative or not required by law. Electronically signed by: Walter Victoria M.D. 01/17/2024 7:16 AM Hip X-Ray 01/16/24 19:08 XR hip RT min 2V HISTORY: 73 years-old Female right hip pain acute right hip pain COMPARISON: CT right hip of same day TECHNIQUE: 2 views of the right hip FINDINGS: There is a subtle acute nondisplaced basicervical fracture of the right femur. No dislocation. Partially imaged left hip arthroplasty. There is [id number] right hip osteoarthritis. Fusion hardware of the lumbar spine. IMPRESSION: Acute nondisplaced basicervical right femoral fracture. ACT 112: Negative or not required by law. The above report was generated using voice recognition software. It may contain grammatical, syntax or spelling errors. Electronically signed by: Julio Sanchez M.D. 01/17/2024 7:[address] 01/16/24 20:24 Exam(s): CT RIGHT HIP Without Contrast EXAM: CT Right Lower Extremity Without Intravenous Contrast, Hip CLINICAL HISTORY: Reason for exam: hip pain, ? femoral neck fx. TECHNIQUE: Axial computed tomography images of the right hip without intravenous contrast. CTDI is 37.23 mGy and DLP is 596.70 mGy-cm. Automated exposure control was utilized for the study. A dose lowering technique was utilized adhering to the principles of ALARA. COMPARISON: Same day right hip radiographs FINDINGS: Bones/joints: Nondisplaced basicervical fracture of the right femur. Right hip joint effusion. No dislocation. Soft tissues: Unremarkable. Vasculature: Phleboliths seen in the right pelvis. IMPRESSION: Nondisplaced basicervical fracture of the right femur. Electronically signed by: Raffy Guadalupe M.D. 01/17/24 00:18 AM Knee X-Ray 01/17/24 10:49 XR knee LT 1 or 2V routine HISTORY: 73 years-old Female acute pain acute pain of the left knee COMPARISON: None TECHNIQUE: 2 views of the left knee FINDINGS: Partially imaged hardware within the mid femoral diaphysis. Chondrocalcinosis with moderate tricompartmental osteoarthritis. Small joint effusion with synovial calcifications. IMPRESSION: Moderate osteoarthritis without acute fracture or dislocation. ACT 112: Negative or not required by law. The above report was generated using voice recognition software. It may contain grammatical, syntax or spelling errors. Electronically signed by: Julio Sanchez M.D. 01/17/2024 12:05 PM Hip/Pelvis X-Ray 01/17/24 12:30 XR hip LT 2V w pelvis CLINICAL HISTORY: left hip pain TECHNIQUE: 2 views of the right hip and single frontal view of the pelvis were obtained. Comparison: None available at the time of this dictation. FINDINGS: There is no evidence of an acute fracture. Total hip arthoplasty hardware is seen without perihardware lucency or hardware fracture. Posterior fixation hardware is seen in the lumbar spine. No soft tissue abnormality is seen. IMPRESSION: No evidence of acute osseous injury. ACT 112: Negative or not required by law. Electronically signed by: Grant Graham M.D. 01/17/2024 3:53 PM Hip X-Ray 01/18/24 07:00 FL hip RT 2-3V CLINICAL HISTORY: Right troch nailacute fracture of the right hip COMPARISON STUDY: Radiographs 01/17/2024 FLUOROSCOPY TIME: 109.3 seconds FLUOROSCOPY IMAGES: 4 EXPOSURE DOSE: 38.03 mGy FINDINGS: Intertrochanteric nail with medullary hemanth fixates the acute right proximal femoral fracture with satisfactory alignment. IMPRESSION: Fluoroscopic assistance above. ACT 112: Negative or not required by law. Electronically signed by: Julio Sanchez M.D. 01/18/2024 3:[address] 01/19/24 20:16 Exam(s): CT HEAD Without Contrast EXAM: CT Head Without Intravenous Contrast CLINICAL HISTORY: Reason for exam: arriaza, htn crisis. TECHNIQUE: Axial computed tomography images of the head/brain without intravenous contrast. CTDI is 36 mGy and DLP is 625 mGy-cm. Automated exposure control was utilized for the study. A dose lowering technique was utilized adhering to the principles of ALARA. COMPARISON: No relevant prior studies available. FINDINGS: Brain: No hemorrhage. No apparent acute cortical infarct. No mass lesion or midline shift. Ventricles: No hydrocephalus. Bones/joints: No acute fracture. Soft tissues: Unremarkable. Sinuses: No acute sinusitis. Mastoid air cells: No mastoid effusion. Orbits: No acute process. Cataract surgery IMPRESSION: No acute intracranial process. Electronically signed by: George Erazo M.D. 01/19/24 22:03 PM
[2024-01-20] MEDS: amLODIPine BESYLATE 5 MG TAB PO SCH (09:23)
--- NOTE | 2024-01-20 10:21 | Communication Note ---
Date of Service: January 20, 2024 Saw patient POD 2. Patient reports no neck pain and minor tingling in fingers, improved from immediately post op. She reports pain in surgical leg. Overall she is doing better. Let her know to contact anesthesia office with any further questions/concerns.
[2024-01-20] MEDS: ALUMINUM/MAGNESIUM/SIMETH (MAALOX MAX) 30 ML UDC PO PRN (11:41)
[2024-01-20] MEDS ORDERED: FAMOTIDINE 20 MG TAB PO PRN (13:41)
--- NOTE | 2024-01-20 13:43 | Orthopedic Progress Note ---
Date of Service January 20, 2024 Assessment & Plan (1) Closed right hip fracture: Plan: 73-year-old female status post IM nailing of a right basicervical femoral neck fracture along with some knee effusions. She is doing better. Pain seems better controlled. Knees look to be more benign. Plan: 1. DVT prophylaxis including thigh-high teds, SCDs, aspirin twice a day for 6 weeks. 2. PT/OT. She can fully weight-bear as tolerated on the right leg. 3. Pain control doing okay with current pain regimen. 4 disposition she is okay for discharge anytime medically stable. I did see her back 2 to 3 weeks out from surgery date. Any orthopedic questions to come back direct me at [phone] 1-2 [phone]. (2) Effusion, left knee: (3) Diabetes mellitus: (4) Hypertensive urgency: Admission and Anticipated Discharge Date Admission Date: January 16, 2024 Subjective 73-year-old female now well postop day 2 from IM nailing of a right basicervical femoral neck fracture. She is doing better. Pain seems to be better this morning. Her knees are not bothering as much either. No other new complaints. Physical Exam Physical Exam: Physical nation is a pleasant middle-age female. She is lying in bed looks pretty comfortable this morning. Examination of the right hip and leg reveals dressing be clean dry and intact. Leg lengths are equal. Thigh is soft and supple. She is neurologically intact. Examination of both knees reveals no skin or warmth. She is got some fairly small knee effusions which is seem to be improved from 2 days ago. She is neurologically intact Results & Data Vital Signs (Past 12 Hours) Vital Signs Temp Pulse Pulse Resp BP BP Pulse Ox 01/20/24 11:00 37.0 C 81 18 167/84 H 94 01/20/24 07:03 37.7 C H 92 H 18 196/78 H 94 01/20/24 06:14 94 H 01/20/24 03:41 37.2 C 96 H 20 196/74 H 93 01/20/24 03:00 Pulse Ox O2 Del Method O2 Del Method 01/20/24 11:00 Room Air 01/20/24 07:03 Room Air 01/20/24 06:14 01/20/24 03:41 Room Air 01/20/24 03:00 93 Room Air Laboratory Results Hemoglobin is 10.9. Macro 33.5. Electrolytes are stable. Diagnostic Findings Cultures are no growth to date.
[2024-01-20] MEDS: PANTOprazole 40 MG TAB PO SCH (14:32)
--- NOTE | 2024-01-20 16:23 | XRay Report ---
XR chest 1V not portable CLINICAL HISTORY: Chest pain. COMPARISON STUDY: Chest radiograph January 16, 2024. FINDINGS: Lung volumes are normal. Lungs are clear. There is no pneumothorax or pleural effusion. Mil d cardiomegaly. Mediastinal contours are normal. There is no evidence for pulmonary edema. IMPRESSION: No acute cardiopulmonary findings. ACT 112: Negative or not required by law. Electronically signed by: Walter Victoria M.D. 01/20/2024 4:22 PM
--- NOTE | 2024-01-20 16:40 | XRay Report ---
KUB CLINICAL HISTORY: Nausea, vomiting and epigastric pain. COMPARISON STUDY: CT of the abdomen and pelvis January 27, 2011. FINDINGS: Right femoral internal fixation, left hip arthroplasty, L5-S1 decompression and fusion and a calcified gallstone are noted. The bowel gas pattern is normal. The amount of stool is within allison l limits. IMPRESSION: 1. No evidence for a bowel obstruction. 2. Cholelithiasis. ACT 112: Negative or not required by law. Electronically signed by: Waltre Victoria M.D. 01/20/2024 4:38 PM
[2024-01-20 17:42] LABS: Adenovirus PCR Not Detected (NotDetected); Bordetella parapertussis PCR Not Detected (NotDetected); Bordetella pertussis PCR Not Detected (NotDetected); Chlamydia pneumoniae PCR Not Detected (NotDetected); Coronavirus 229E PCR Not Detected (NotDetected); Coronavirus CoV-2 (COVID19)PCR Not Detected (NotDetected); Coronavirus HKU1 PCR Not Detected (NotDetected); Coronavirus NL63 PCR Not Detected (NotDetected); Coronavirus OC43PCR Not Detected (NotDetected); Human Metapneumovirus PCR Not Detected (NotDetected); Influenza A PCR Not Detected (NotDetected); Influenza B PCR Not Detected (NotDetected); Mycoplasma pneumoniae PCR Not Detected (NotDetected); Parainfluenza Virus 1 PCR Not Detected (NotDetected); Parainfluenza Virus 2 PCR Not Detected (NotDetected); Parainfluenza Virus 3 PCR Not Detected (NotDetected); Parainfluenza Virus 4 PCR Not Detected (NotDetected); Respiratory Syncytial VirusPCR Not Detected (NotDetected); Rhinovirus/Enterovirus PCR Not Detected (NotDetected)
[2024-01-20] MEDS: NYSTATIN SUSP 500,000 U/5 ML UDC PO SCH (18:23)
--- NOTE | 2024-01-20 18:47 | Electrocardiogram Report ---
Test Reason : Blood Pressure : */* mmHG Vent. Rate : 84 BPM Atrial Rate : 84 BPM P-R Int : 126 ms QRS Dur : 82 ms QT Int : 366 ms P-R-T Axes : 48 -14 26 degrees QTcB Int : 432 ms Normal sinus rhythm Possible Lateral infarct , age undetermined Abnormal ECG When compared with ECG of 16-Jan-2024 20:22, Borderline criteria for Lateral infarct are now Present No significant change was found Confirmed by Patricio Quintanilla ([id number]) on 01/20/2024 6:46:35 PM Referred By: REFERRED SELF Confirmed By: Patricio Quintanilla
[2024-01-20] MEDS: ACETAMINOPHEN 325 MG TAB PO PRN (23:28)
[2024-01-20] MEDS: MELATONIN 3 MG TAB PO PRN (23:29)
[2024-01-21 02:56] LABS: Hemoglobin 9.8 g/dl (12.0-16.0); Mean Corpuscular Hemoglobin 30.5 pg (25.0-34.0); Mean Corpuscular Hgb Conc 33.8 g/dL (32.0-36.0); Mean Corpuscular Volume 90.3 fL (80.0-100.0); Mean Platelet Volume 10.2 fL (9.4-12.4); Platelet Count 274 K/uL (130-400); RDW Coefficient of Variation 12.3 % (11.5-14.5); RDW Standard Deviation 41.2 fL (36.4-46.3); Red Blood Count 3.21 M/uL (4.20-5.40); White Blood Count 11.34 K/ul (4.8-10.8)
[2024-01-21 03:12] LABS: BUN Creatinine Ratio 26.3 (10-20); Calcium 8.8 mg/dl (8.6-10.3); Creatinine Clr Calc Pharmacy 40.2 ml/min; Potassium 4.1 mmol/L (3.5-5.1)
[2024-01-21] MEDS: SODIUM CHLORIDE 0.9% 1,000 ML IV SCH (08:49)
--- NOTE | 2024-01-21 11:47 | Hospitalist Progress Note ---
Date of Service January 21, 2024 Assessment & Plan (1) Hypertensive urgency: (2) Closed right hip fracture: (3) Diabetes mellitus: (4) Effusion, left knee: Plan Pt is a 73yoF with medical history significant for hypertension, hyperlipidemia, DM2 diet-controlled, anal cancer status post surgery/chemoradiation. Closed right hip fracture Denied history of fall Developed pain on trying to get up from bed Hip CT showed nondisplaced fracture of right femur L Knee XR noted moderate osteoarthritis Concern for pathological nontraumatic fracture. Vit D level was decreased, started on supplement Orthopedics was consulted, appreciate recs. Recommended the following: -pt is s/p R troch nail on 01/18/24 -"DVT prophylaxis including thigh-high teds, SCDs, aspirin twice a day for 6 weeks. PT/OT. She can fully weight-bear as tolerated on the right leg. Pain control doing okay with current pain regimen. disposition she is okay for discharge anytime medically stable. I did see her back 2 to 3 weeks out from surgery date." Hypertensive urgency Review of EPIC flowsheet shows patient's BP has been high in the past. Last BP noted was 178/102 in 01/10/2023 Hence Likely has Hypertension, though not on any medication per med rec/EPIC review Worsened hypertension in setting of pain from hip fracture. Continue losartan given on admission, added amlodipine 5mg BID with prn labetalol Optimize BP control and monitor TTE: LV normal, mild conc LVH, EF 55-60%, Grade I DD, mild AV sclerosis without stenosis, mild mitral calcification, trace MR, trace TR BP currently controlled Continue to monitor Complicated UTI Pt with fever on 01/18, leukocytosis UA suggestive of infection, urine Cx no sig growth to date On IV cefepime Day 3, Continue Adjust antibiotics based on culture Oropharyngeal candidiasis Throat pain Midline chest pain Nausea Patient noting discomfort in her oropharynx with throat going down to the chest wall On exam, noted thrush like changes on tongue Strep testing ordered to rule out strep as an acute cause Respiratory bio fire pending Chest x-ray ordered and pending KUB ordered in the setting of recent surgery EKG and troponin ordered and pending Will start nystatin swish and swallow treatment As needed heartburn medications of pantoprazole scheduled with as needed Maalox and famotidine Zofran for nausea as needed Continue to monitor Improved with nystatin IVÁN Cr elevated on 01/20 Continue with IVF, 2 bags Monitor with AM labs Acute Blood Loss Anemia Hgb with gradual drop post op AM anemia panel Continue to monitor Diabetes mellitus: Diet controlled HbA1c 6.1 ISS PCP follow up hx of anal cancer In 2004 Diet: HH/DMII Code status: Full DVT PPx: aspirin 81mg BID per ortho Dispo: Per PT/OT recs- acute rehab. Likely on Tuesday Admission and Anticipated Discharge Date Admission Date: January 16, 2024 Subjective Tracy was seen laying in bed. States that her throat and upper chest pain had resolved with the nystatin medication. Otherwise denied acute concerns Review of Systems Review of Systems: All systems reviewed & are unremarkable except as noted in Subjective Physical Exam Physical Exam: General: Alert, oriented. No acute distress Psych: Appropriate mood and affect Neuro: difficulty with movements in the bed but can move lower extremities HEENT: NC/AT CV: RRR Resp: no increased effort of breathing Abdomen: Soft, nontender, nondistended Extremities: moving lower extremities bilaterally. Hip bandaged Results & Data Results & Data Vital Signs (Past 12 Hours) Vital Signs Temp Pulse Pulse Resp BP BP Pulse Ox 01/21/24 07:59 36.7 C 70 16 143/78 H 96 01/21/24 07:53 74 01/21/24 02:49 36.9 C 68 18 156/74 H 95 01/21/24 00:54 74 O2 Del Method 01/21/24 07:59 Room Air 01/21/24 07:53 01/21/24 02:49 Room Air 01/21/24 00:54 Diagnostic Findings Chest X-Ray 01/16/24 19:08 XR chest 1V portable CLINICAL HISTORY: Hip pain. COMPARISON STUDY: Chest radiograph July 05, 2006. FINDINGS: Lung volumes are normal. Lungs are clear. There is no pneumothorax or pleural effusion. Mild cardiomegaly. Mediastinal contours are normal. There is no evidence for pulmonary edema. IMPRESSION: No acute cardiopulmonary findings. ACT 112: Negative or not required by law. Electronically signed by: Walter Victoria M.D. 01/17/2024 7:16 AM Hip X-Ray 01/16/24 19:08 XR hip RT min 2V HISTORY: 73 years-old Female right hip pain acute right hip pain COMPARISON: CT right hip of same day TECHNIQUE: 2 views of the right hip FINDINGS: There is a subtle acute nondisplaced basicervical fracture of the right femur. No dislocation. Partially imaged left hip arthroplasty. There is [id number] right hip osteoarthritis. Fusion hardware of the lumbar spine. IMPRESSION: Acute nondisplaced basicervical right femoral fracture. ACT 112: Negative or not required by law. The above report was generated using voice recognition software. It may contain grammatical, syntax or spelling errors. Electronically signed by: Julio Sanchez M.D. 01/17/2024 7:[address] 01/16/24 20:24 Exam(s): CT RIGHT HIP Without Contrast EXAM: CT Right Lower Extremity Without Intravenous Contrast, Hip CLINICAL HISTORY: Reason for exam: hip pain, ? femoral neck fx. TECHNIQUE: Axial computed tomography images of the right hip without intravenous contrast. CTDI is 37.23 mGy and DLP is 596.70 mGy-cm. Automated exposure control was utilized for the study. A dose lowering technique was utilized adhering to the principles of ALARA. COMPARISON: Same day right hip radiographs FINDINGS: Bones/joints: Nondisplaced basicervical fracture of the right femur. Right hip joint effusion. No dislocation. Soft tissues: Unremarkable. Vasculature: Phleboliths seen in the right pelvis. IMPRESSION: Nondisplaced basicervical fracture of the right femur. Electronically signed by: Raffy Guadalupe M.D. 01/17/24 00:18 AM Knee X-Ray 01/17/24 10:49 XR knee LT 1 or 2V routine HISTORY: 73 years-old Female acute pain acute pain of the left knee COMPARISON: None TECHNIQUE: 2 views of the left knee FINDINGS: Partially imaged hardware within the mid femoral diaphysis. Chondrocalcinosis with moderate tricompartmental osteoarthritis. Small joint effusion with synovial calcifications. IMPRESSION: Moderate osteoarthritis without acute fracture or dislocation. ACT 112: Negative or not required by law. The above report was generated using voice recognition software. It may contain grammatical, syntax or spelling errors. Electronically signed by: Julio Sanchez M.D. 01/17/2024 12:05 PM Hip/Pelvis X-Ray 01/17/24 12:30 XR hip LT 2V w pelvis CLINICAL HISTORY: left hip pain TECHNIQUE: 2 views of the right hip and single frontal view of the pelvis were obtained. Comparison: None available at the time of this dictation. FINDINGS: There is no evidence of an acute fracture. Total hip arthoplasty hardware is seen without perihardware lucency or hardware fracture. Posterior fixation hardware is seen in the lumbar spine. No soft tissue abnormality is seen. IMPRESSION: No evidence of acute osseous injury. ACT 112: Negative or not required by law. Electronically signed by: Grant Graham M.D. 01/17/2024 3:53 PM Hip X-Ray 01/18/24 07:00 FL hip RT 2-3V CLINICAL HISTORY: Right troch nailacute fracture of the right hip COMPARISON STUDY: Radiographs 01/17/2024 FLUOROSCOPY TIME: 109.3 seconds FLUOROSCOPY IMAGES: 4 EXPOSURE DOSE: 38.03 mGy FINDINGS: Intertrochanteric nail with medullary hemanth fixates the acute right proximal femoral fracture with satisfactory alignment. IMPRESSION: Fluoroscopic assistance above. ACT 112: Negative or not required by law. Electronically signed by: Julio Sanchez M.D. 01/18/2024 3:[address] 01/19/24 20:16 Exam(s): CT HEAD Without Contrast EXAM: CT Head Without Intravenous Contrast CLINICAL HISTORY: Reason for exam: arriaza, htn crisis. TECHNIQUE: Axial computed tomography images of the head/brain without intravenous contrast. CTDI is 36 mGy and DLP is 625 mGy-cm. Automated exposure control was utilized for the study. A dose lowering technique was utilized adhering to the principles of ALARA. COMPARISON: No relevant prior studies available. FINDINGS: Brain: No hemorrhage. No apparent acute cortical infarct. No mass lesion or midline shift. Ventricles: No hydrocephalus. Bones/joints: No acute fracture. Soft tissues: Unremarkable. Sinuses: No acute sinusitis. Mastoid air cells: No mastoid effusion. Orbits: No acute process. Cataract surgery IMPRESSION: No acute intracranial process. Electronically signed by: George Erazo M.D. 01/19/24 22:03 PM KUB X-Ray 01/20/24 14:11 KUB CLINICAL HISTORY: Nausea, vomiting and epigastric pain. COMPARISON STUDY: CT of the abdomen and pelvis January 27, 2011. FINDINGS: Right femoral internal fixation, left hip arthroplasty, L5-S1 decompression and fusion and a calcified gallstone are noted. The bowel gas pattern is normal. The amount of stool is within normal limits. IMPRESSION: 1. No evidence for a bowel obstruction. 2. Cholelithiasis. ACT 112: Negative or not required by law. Electronically signed by: Walter Victoria M.D. 01/20/2024 4:38 PM Chest X-Ray 01/20/24 15:58 XR chest 1V not portable CLINICAL HISTORY: Chest pain. COMPARISON STUDY: Chest radiograph January 16, 2024. FINDINGS: Lung volumes are normal. Lungs are clear. There is no pneumothorax or pleural effusion. Mild cardiomegaly. Mediastinal contours are normal. There is no evidence for pulmonary edema. IMPRESSION: No acute cardiopulmonary findings. ACT 112: Negative or not required by law. Electronically signed by: Walter Victoria M.D. 01/20/2024 4:22 PM
[2024-01-21] MEDS ORDERED: POLYETHYLENE (MIRALAX) 17 GM PACK PO PRN (19:59)
[2024-01-21] MEDS: POLYETHYLENE (MIRALAX) 17 GM PACK PO STA (20:36)
[2024-01-21] MEDS: LACTULOSE SYRUP 30 GM/45 ML UDP PO STA (21:23)
[2024-01-22 06:00] LABS: Hematocrit (blood only) 30.8 % (37.0-47.0); Hemoglobin 9.9 g/dl (12.0-16.0); Mean Corpuscular Hemoglobin 29.9 pg (25.0-34.0); Mean Corpuscular Hgb Conc 32.1 g/dL (32.0-36.0); Mean Corpuscular Volume 93.1 fL (80.0-100.0); Mean Platelet Volume 10.3 fL (9.4-12.4); Platelet Count 281 K/uL (130-400); RDW Coefficient of Variation 12.4 % (11.5-14.5); RDW Standard Deviation 42.3 fL (36.4-46.3); Red Blood Count 3.31 M/uL (4.20-5.40); White Blood Count 8.32 K/ul (4.8-10.8)
[2024-01-22 06:17] LABS: BUN Creatinine Ratio 32.3 (10-20); Calcium 8.4 mg/dl (8.6-10.3); Creatinine Clr Calc Pharmacy 42.4 ml/min; Magnesium 2.3 mg/dl (1.7-2.4); Phosphorus 3.7 mg/dl (2.5-4.9); Potassium 3.9 mmol/L (3.5-5.1)
[2024-01-22 06:36] LABS: Ferritin 177.5 ng/ml (8-388)
[2024-01-22 06:41] LABS: Folate (Folic Acid),Ser orPlas > 22.30 ng/ml (>5.38)
[2024-01-22 06:42] LABS: Vitamin B12 620 pg/ml (180-914)
--- NOTE | 2024-01-22 07:54 | Orthopedic Progress Note ---
Date of Service January 22, 2024 Assessment & Plan (1) Closed right hip fracture: Plan: 73-year-old female now 4 days out from IM nailing of a right femoral neck fracture. She is doing better. She is orthopedically stable. Continue current treatment plan. She can weight-bear as tolerated. DVT prophylaxis as described previously. Follow-up in orthopedic clinic 2 to 3 weeks out from surgery date. (2) Effusion, left knee: Admission and Anticipated Discharge Date Admission Date: January 16, 2024 Subjective 73-year-old female now postop day 4 from 5 mm right femoral neck fracture. She is also had some knee swelling. She is doing better this morning. Pain significantly improved in both her hip and her knees. Physical Exam Physical Exam: Physical examination is a pleasant early female. She is lying in bed looks pretty comfortable this morning. Still just cannot awaken. Examination of the right hip reveals dressing clean dry and intact. She is neurologically intact. Leg lengths are equal. Examination of both knees reveals swelling be improved. Really not much in the way of swelling. No redness no warmth. Results & Data Vital Signs (Past 12 Hours) Vital Signs Temp Pulse Pulse Resp BP Pulse Ox O2 Del Method 01/22/24 05:57 85 01/22/24 02:12 36.7 C 72 16 147/83 H 96 Room Air 01/21/24 22:44 36.4 C L 72 18 137/79 94 Room Air 01/21/24 21:55 75 01/21/24 20:00 Room Air
[2024-01-22] MEDS: IRON SUCROSE 200 MG in 0.9 % SODIUM CHLORIDE 100 ML IV ONE (09:49)
--- NOTE | 2024-01-22 12:55 | Hospitalist Progress Note ---
Date of Service January 22, 2024 Assessment & Plan (1) Hypertensive urgency: (2) Closed right hip fracture: (3) Diabetes mellitus: (4) Effusion, left knee: Plan Pt is a 73yoF with medical history significant for hypertension, hyperlipidemia, DM2 diet-controlled, anal cancer status post surgery/chemoradiation. Closed right hip fracture Denied history of fall Developed pain on trying to get up from bed Hip CT showed nondisplaced fracture of right femur L Knee XR noted moderate osteoarthritis Concern for pathological nontraumatic fracture. Vit D level was decreased, started on supplement Orthopedics was consulted, appreciate recs. Recommended the following: -pt is s/p R troch nail on 01/18/24 -"DVT prophylaxis including thigh-high teds, SCDs, aspirin twice a day for 6 weeks. PT/OT. She can fully weight-bear as tolerated on the right leg. Pain control doing okay with current pain regimen. disposition she is okay for discharge anytime medically stable. I did see her back 2 to 3 weeks out from surgery date." Hypertensive urgency Review of EPIC flowsheet shows patient's BP has been high in the past. Last BP noted was 178/102 in 01/10/2023 Hence Likely has Hypertension, though not on any medication per med rec/EPIC review Worsened hypertension in setting of pain from hip fracture. Continue losartan given on admission, added amlodipine 5mg BID with prn labetalol Optimize BP control and monitor TTE: LV normal, mild conc LVH, EF 55-60%, Grade I DD, mild AV sclerosis without stenosis, mild mitral calcification, trace MR, trace TR BP currently controlled Continue to monitor Complicated UTI Pt with fever on 01/18, leukocytosis UA suggestive of infection, urine Cx no sig growth to date On IV cefepime Day 45, Continue Adjust antibiotics based on culture Oropharyngeal candidiasis Throat pain Midline chest pain Nausea Patient noting discomfort in her oropharynx with throat going down to the chest wall On exam, noted thrush like changes on tongue Strep testing ordered to rule out strep as an acute cause Respiratory bio fire pending Chest x-ray ordered and pending KUB ordered in the setting of recent surgery EKG and troponin ordered and pending Will start nystatin swish and swallow treatment As needed heartburn medications of pantoprazole scheduled with as needed Maalox and famotidine Zofran for nausea as needed Continue to monitor Improved with nystatin IVÁN Cr elevated on 01/20 Continue with IVF, 2 bags Monitor with AM labs Improving Acute Blood Loss Anemia Hgb with gradual drop post op AM anemia panel noting iron deficiency anemia, status post IV Venofer 1 bag Continue to monitor Diabetes mellitus: Diet controlled HbA1c 6.1 ISS PCP follow up hx of anal cancer In 2004 Diet: HH/DMII Code status: Full DVT PPx: aspirin 81mg BID per ortho Dispo: Per PT/OT recs- acute rehab. Likely on Tuesday Admission and Anticipated Discharge Date Admission Date: January 16, 2024 Subjective patient was seen laying in bed. States she had a massive bowel movement today postop 4 days. States that she is eating and drinking without issue, notes that the sore throat has resolved Review of Systems Review of Systems: All systems reviewed & are unremarkable except as noted in Subjective Physical Exam Physical Exam: General: Alert, oriented. No acute distress Psych: Appropriate mood and affect Neuro: difficulty with movements in the bed but can move lower extremities HEENT: NC/AT CV: RRR Resp: no increased effort of breathing Abdomen: Soft, nontender, nondistended Extremities: moving lower extremities bilaterally. Hip bandaged Results & Data Results & Data Vital Signs (Past 12 Hours) Vital Signs Temp Pulse Pulse Resp BP BP Pulse Ox 01/22/24 11:23 01/22/24 11:22 36.7 C 76 16 148/74 H 94 01/22/24 07:53 36.7 C 75 16 178/76 H 96 01/22/24 05:57 85 01/22/24 02:12 36.7 C 72 16 147/83 H 96 O2 Del Method 01/22/24 11:23 Room Air 01/22/24 11:22 Room Air 01/22/24 07:53 Room Air 01/22/24 05:57 01/22/24 02:12 Room Air
[2024-01-23 06:50] LABS: Hematocrit (blood only) 29.5 % (37.0-47.0); Hemoglobin 9.9 g/dl (12.0-16.0); Mean Corpuscular Hemoglobin 30.3 pg (25.0-34.0); Mean Corpuscular Hgb Conc 33.6 g/dL (32.0-36.0); Mean Corpuscular Volume 90.2 fL (80.0-100.0); Mean Platelet Volume 10.3 fL (9.4-12.4); Platelet Count 322 K/uL (130-400); RDW Coefficient of Variation 12.4 % (11.5-14.5); Red Blood Count 3.27 M/uL (4.20-5.40); White Blood Count 8.91 K/ul (4.8-10.8)
[2024-01-23 07:10] LABS: BUN Creatinine Ratio 29.2 (10-20); Creatinine Clr Calc Pharmacy 44.8 ml/min; Magnesium 2.2 mg/dl (1.7-2.4); Phosphorus 3.9 mg/dl (2.5-4.9); Potassium 4.2 mmol/L (3.5-5.1)
--- NOTE | 2024-01-23 14:04 | Hospitalist Progress Note ---
Date of Service January 23, 2024 Assessment & Plan (1) Hypertensive urgency: (2) Closed right hip fracture: (3) Diabetes mellitus: (4) Effusion, left knee: Plan Pt is a 73yoF with medical history significant for hypertension, hyperlipidemia, DM2 diet-controlled, anal cancer status post surgery/chemoradiation. Closed right hip fracture Denied history of fall Developed pain on trying to get up from bed Hip CT showed nondisplaced fracture of right femur L Knee XR noted moderate osteoarthritis Concern for pathological nontraumatic fracture. Vit D level was decreased, started on supplement Orthopedics was consulted, appreciate recs. Recommended the following: -pt is s/p R troch nail on 01/18/24 -"DVT prophylaxis including thigh-high teds, SCDs, aspirin twice a day for 6 weeks. PT/OT. She can fully weight-bear as tolerated on the right leg. Pain control doing okay with current pain regimen. disposition she is okay for discharge anytime medically stable. I did see her back 2 to 3 weeks out from surgery date." Hypertensive urgency Review of EPIC flowsheet shows patient's BP has been high in the past. Last BP noted was 178/102 in 01/10/2023 Hence Likely has Hypertension, though not on any medication per med rec/EPIC review Worsened hypertension in setting of pain from hip fracture. Continue losartan given on admission, added amlodipine 5mg BID with prn labetalol Optimize BP control and monitor TTE: LV normal, mild conc LVH, EF 55-60%, Grade I DD, mild AV sclerosis without stenosis, mild mitral calcification, trace MR, trace TR BP currently controlled Continue to monitor Complicated UTI Pt with fever on 01/18, leukocytosis UA suggestive of infection, urine Cx no sig growth to date Treated with IV cefepime Day 08/20 completed treatment Oropharyngeal candidiasis Throat pain Midline chest pain Nausea Patient noting discomfort in her oropharynx with throat going down to the chest wall On exam, noted thrush like changes on tongue Strep testing ordered to rule out strep as an acute cause Respiratory bio fire pending Chest x-ray ordered and pending KUB ordered in the setting of recent surgery EKG and troponin ordered and pending Will start nystatin swish and swallow treatment As needed heartburn medications of pantoprazole scheduled with as needed Maalox and famotidine Zofran for nausea as needed Continue to monitor Improved with nystatin IVÁN Cr elevated on 01/20 Continue with IVF, 2 bags Monitor with AM labs Improving, currently normal Acute Blood Loss Anemia Hgb with gradual drop post op AM anemia panel noting iron deficiency anemia, status post IV Venofer 1 bag Continue to monitor Diabetes mellitus: Diet controlled HbA1c 6.1 ISS PCP follow up hx of anal cancer In 2004 Diet: HH/DMII Code status: Full DVT PPx: aspirin 81mg BID per ortho Dispo: Per PT/OT recs- acute rehab. Likely on Tuesday Admission and Anticipated Discharge Date Admission Date: January 16, 2024 Subjective patient was seen sitting up at the side of her bed. Anxiously awaiting discharge. States she was told that there was an issue with her insurance and she would like that clarified. Requesting to speak with the registered nurse hh case manager. Case management notified. States that pain is well-controlled Sore throat has improved Review of Systems Review of Systems: All systems reviewed & are unremarkable except as noted in Subjective Physical Exam Physical Exam: General: Alert, oriented. No acute distress Psych: Appropriate mood and affect Neuro: difficulty with movements in the bed but can move lower extremities HEENT: NC/AT CV: RRR Resp: no increased effort of breathing Abdomen: Soft, nontender, nondistended Extremities: moving lower extremities bilaterally. Results & Data Results & Data Vital Signs (Past 12 Hours) Vital Signs Temp Pulse Pulse Resp BP Pulse Ox O2 Del Method 01/23/24 11:52 36.5 C 86 16 149/62 H 93 Room Air 01/23/24 07:43 37 C 82 18 169/76 H 96 Room Air 01/23/24 07:12 70 01/23/24 03:21 36.4 C L 75 18 178/95 H 98 Room Air
[2024-01-24 06:09] LABS: Hematocrit (blood only) 29.4 % (37.0-47.0); Hemoglobin 9.7 g/dl (12.0-16.0); Mean Corpuscular Hemoglobin 30.2 pg (25.0-34.0); Mean Corpuscular Volume 91.6 fL (80.0-100.0); Platelet Count 343 K/uL (130-400); RDW Coefficient of Variation 12.5 % (11.5-14.5); RDW Standard Deviation 41.9 fL (36.4-46.3); Red Blood Count 3.21 M/uL (4.20-5.40)
[2024-01-24 06:19] LABS: BUN Creatinine Ratio 25.2 (10-20); Calcium 8.9 mg/dl (8.6-10.3); Creatinine Clr Calc Pharmacy 39.8 ml/min; Magnesium 2.2 mg/dl (1.7-2.4); Phosphorus 4.4 mg/dl (2.5-4.9); Potassium 4.2 mmol/L (3.5-5.1)
--- NOTE | 2024-01-24 09:26 | Discharge Summary ---
Discharge Summary Date of Service January 24, 2024 Principal Dx & Hospital Course #1 = Principal Diagnosis (1) Hypertensive urgency: (2) Closed right hip fracture: (3) Diabetes mellitus: (4) Effusion, left knee: Plan Pt is a 73yoF with medical history significant for hypertension, hyperlipidemia, DM2 diet-controlled, anal cancer status post surgery/chemoradiation. She was admitted for repair of closed right hip fracture. Closed right hip fracture Denied history of fall Developed pain on trying to get up from bed Hip CT showed nondisplaced fracture of right femur L Knee XR noted moderate osteoarthritis Concern for pathological nontraumatic fracture. Vit D level was decreased, started on supplement. continue with vitamin D supplement after discharge. Orthopedics was consulted, appreciate recs. Recommended the following: -pt is s/p R troch nail on 01/18/24 -"DVT prophylaxis including thigh-high teds, SCDs, aspirin twice a day for 6 weeks. PT/OT. She can fully weight-bear as tolerated on the right leg. Pain control doing okay with current pain regimen. disposition she is okay for discharge anytime medically stable. I did see he r back 2 to 3 weeks out from surgery date." continue with vitamin D supplement after discharge Continue with aspirin 81 mg twice daily for total of 6 weeks per recommendations of orthopedics Please ensure close follow-up with orthopedic surgery in 2 to 3 weeks from surgery date of 01/18/2024 Hypertensive urgency Review of EPIC flowsheet shows patient's BP has been high in the past. Last BP noted was 178/102 in 01/10/2023 Hence Likely has Hypertension, though not on any medication per med rec/EPIC review Worsened hypertension in setting of pain from hip fracture. Continue losartan given on admission, added amlodipine 5mg BID with prn labetalol Optimize BP control and monitor TTE: LV normal, mild conc LVH, EF 55-60%, Grade I DD, mild AV sclerosis without stenosis, mild mitral calcification, trace MR, trace TR BP currently controlled continue with losartan 100 mg daily and amlodipine 5 mg twice daily after discharge Close PCP follow-up for any further needed medication titrations. Complicated UTI Pt with fever on 01/18, leukocytosis UA suggestive of infection, urine Cx no sig growth to date Treated with IV cefepime Day 08/20 completed treatment Oropharyngeal candidiasis Throat pain Midline chest pain Nausea Patient noting discomfort in her oropharynx with throat going down to the chest wall On exam, noted thrush like changes on tongue Strep testing ordered to rule out strep as an acute cause Respiratory bio fire pending Chest x-ray ordered and pending KUB ordered in the setting of recent surgery EKG and troponin ordered and pending Will start nystatin swish and swallow treatment As needed heartburn medications of pantoprazole scheduled with as needed Maalox and famotidine Zofran for nausea as needed Continue to monitor Improved with nystatin, Patient discharged with a prescription to continue for 2 more days. IVÁN Cr elevated on 01/20 Continue with IVF, 2 bags Improved to normal but was back up to 1.35 on day of discharge. Please encourage patient to push fluids, anticipate improvement with increased po intake consider holding losartan with any further increase Close PCP follow-up for continued monitoring Acute Blood Loss Anemia Hgb with gradual drop post op AM anemia panel noting iron deficiency anemia, status post IV Venofer 1 bag Hemoglobin stable at 9.7 on day of discharge close PCP monitoring Diabetes mellitus: Diet controlled HbA1c 6.1 ISS PCP follow up hx of anal cancer In 2004 Notes For Next Care Provider Creatinine of 1.35 acutely elevated on day of discharge from being normal the day before. Has been improving with increased fluid intake/IV fluids. Please encourage increased p.o. intake and continue to monitor after discharge. consider holding losartan with any further increase in Cr. continue to monitor blood pressure after discharge Patient started on ferrous sulfate supplements, continue to monitor hemoglobin after discharge Medication Changes From Visit ferrous sulfate's oral supplements Vitamin D oral supplement Nystatin swish and swallow for 2 more days Losartan 100 mg daily Amlodipine 5 mg twice a day Admission HPI Per Admitting Provider History obtained from patient and records. Medical history significant for hypertension, hyperlipidemia, DM2 diet- controlled, anal cancer status post surgery/chemoradiation. Patient heard and felt a crack on the right hip as she tried to stand up last night. Discomfort worse this morning. No recollection of recent falls. No headache, no chest pain, no SOB. SBP 200s upon arrival at the ER. 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 No acute distress Psych: Appropriate mood and affect Neuro: difficulty with movements in the bed but can move lower extremities HEENT: NC/AT CV: RRR Resp: no increased effort of breathing Abdomen: Soft, nontender, nondistended Extremities: moving lower extremities bilaterally. Updated Medication List Medication Instructions Recorded Confirmed Type acetaminophen 650 mg 650 mg PO DIRECTED PRN Pain 01/16/24 01/17/24 History tablet,extended release (Tylenol Arthritis Pain) multivitamin 1 tab PO DAILY 01/16/24 01/17/24 History Pre/Probiotic 1 cap PO DAILY 01/17/24 01/17/24 History Super Beets 1 cap PO DAILY 01/17/24 01/17/24 History Vitamin For Kidney 2 cap PO DAILY 01/17/24 01/17/24 History Vitamin For Liver 1 cap PO DAILY 01/17/24 01/17/24 History amlodipine 5 mg tablet (Norvasc) 5 mg PO BID #30 tabs 01/24/24 Rx aspirin 81 mg tablet,delayed 81 mg PO BID #60 tabs 01/24/24 Rx release cholecalciferol (vitamin D3) 125 125 mcg PO QAM #30 tabs 01/24/24 Rx mcg (5,000 unit) tablet ferrous sulfate 325 mg (65 mg 325 mg PO DAILY #30 tabs 01/24/24 Rx iron) tablet losartan 50 mg tablet 100 mg (2 x 50 mg) PO QAM #60 tabs 01/24/24 Rx nystatin 100,000 unit/mL oral 5 ml PO QID #480 mL 01/24/24 Rx suspension Hospital Stay Data Consultations 01/16/24 21:31 ED Decision to Admit Stat 01/17/24 02:19 Consult Orthopedic Surgery Routine Procedures Performed Operation Date: 01/18/24 13:45 Actual Procedures p Right Long Troch Nail(Right) - Arvin George MD Diagnostic Imagining Performed 01/16/24 20:24 CT hip RT wo con Stat 01/18/24 07:00 FL hip RT 2-3V Routine 01/19/24 20:16 CT head/brain wo con Stat Chest X-Ray 01/16/24 19:08 XR chest 1V portable CLINICAL HISTORY: Hip pain. COMPARISON STUDY: Chest radiograph July 05, 2006. FINDINGS: Lung volumes are normal. Lungs are clear. There is no pneumothorax or pleural effusion. Mild cardiomegaly. Mediastinal contours are normal. There is no evidence for pulmonary edema. IMPRESSION: No acute cardiopulmonary findings. ACT 112: Negative or not required by law. Electronically signed by: Walter Victoria M.D. 01/17/2024 7:16 AM Hip X-Ray 01/16/24 19:08 XR hip RT min 2V HISTORY: 73 years-old Female right hip pain acute right hip pain COMPARISON: CT right hip of same day TECHNIQUE: 2 views of the right hip FINDINGS: There is a subtle acute nondisplaced basicervical fracture of the right femur. No dislocation. Partially imaged left hip arthroplasty. There is [id number] right hip osteoarthritis. Fusion hardware of the lumbar spine. IMPRESSION: Acute nondisplaced basicervical right femoral fracture. ACT 112: Negative or not required by law. The above report was generated using voice recognition software. It may contain grammatical, syntax or spelling errors. Electronically signed by: Julio Sanchez M.D. 01/17/2024 7:[address] 01/16/24 20:24 Exam(s): CT RIGHT HIP Without Contrast EXAM: CT Right Lower Extremity Without Intravenous Contrast, Hip CLINICAL HISTORY: Reason for exam: hip pain, ? femoral neck fx. TECHNIQUE: Axial computed tomography images of the right hip without intravenous contrast. CTDI is 37.23 mGy and DLP is 596.70 mGy-cm. Automated exposure control was utilized for the study. A dose lowering technique was utilized adhering to the principles of ALARA. COMPARISON: Same day right hip radiographs FINDINGS: Bones/joints: Nondisplaced basicervical fracture of the right femur. Right hip joint effusion. No dislocation. Soft tissues: Unremarkable. Vasculature: Phleboliths seen in the right pelvis. IMPRESSION: Nondisplaced basicervical fracture of the right femur. Electronically signed by: Raffy Guadalupe M.D. 01/17/24 00:18 AM Knee X-Ray 01/17/24 10:49 XR knee LT 1 or 2V routine HISTORY: 73 years-old Female acute pain acute pain of the left knee COMPARISON: None TECHNIQUE: 2 views of the left knee FINDINGS: Partially imaged hardware within the mid femoral diaphysis. Chondrocalcinosis with moderate tricompartmental osteoarthritis. Small joint effusion with synovial calcifications. IMPRESSION: Moderate osteoarthritis without acute fracture or dislocation. ACT 112: Negative or not required by law. The above report was generated using voice recognition software. It may contain grammatical, syntax or spelling errors. Electronically signed by: Julio Sanchez M.D. 01/17/2024 12:05 PM Hip/Pelvis X-Ray 01/17/24 12:30 XR hip LT 2V w pelvis CLINICAL HISTORY: left hip pain TECHNIQUE: 2 views of the right hip and single frontal view of the pelvis were obtained. Comparison: None available at the time of this dictation. FINDINGS: There is no evidence of an acute fracture. Total hip arthoplasty hardware is seen without perihardware lucency or hardware fracture. Posterior fixation hardware is seen in the lumbar spine. No soft tissue abnormality is seen. IMPRESSION: No evidence of acute osseous injury. ACT 112: Negative or not required by law. Electronically signed by: Grant Graham M.D. 01/17/2024 3:53 PM Hip X-Ray 01/18/24 07:00 FL hip RT 2-3V CLINICAL HISTORY: Right troch nailacute fracture of the right hip COMPARISON STUDY: Radiographs 01/17/2024 FLUOROSCOPY TIME: 109.3 seconds FLUOROSCOPY IMAGES: 4 EXPOSURE DOSE: 38.03 mGy FINDINGS: Intertrochanteric nail with medullary hemanth fixates the acute right proximal femoral fracture with satisfactory alignment. IMPRESSION: Fluoroscopic assistance above. ACT 112: Negative or not required by law. Electronically signed by: Julio Sanchez M.D. 01/18/2024 3:[address] 01/19/24 20:16 Exam(s): CT HEAD Without Contrast EXAM: CT Head Without Intravenous Contrast CLINICAL HISTORY: Reason for exam: arriaza, htn crisis. TECHNIQUE: Axial computed tomography images of the head/brain without intravenous contrast. CTDI is 36 mGy and DLP is 625 mGy-cm. Automated exposure control was utilized for the study. A dose lowering technique was utilized adhering to the principles of ALARA. COMPARISON: No relevant prior studies available. FINDINGS: Brain: No hemorrhage. No apparent acute cortical infarct. No mass lesion or midline shift. Ventricles: No hydrocephalus. Bones/joints: No acute fracture. Soft tissues: Unremarkable. Sinuses: No acute sinusitis. Mastoid air cells: No mastoid effusion. Orbits: No acute process. Cataract surgery IMPRESSION: No acute intracranial process. Electronically signed by: George Erazo M.D. 01/19/24 22:03 PM KUB X-Ray 01/20/24 14:11 KUB CLINICAL HISTORY: Nausea, vomiting and epigastric pain. COMPARISON STUDY: CT of the abdomen and pelvis January 27, 2011. FINDINGS: Right femoral internal fixation, left hip arthroplasty, L5-S1 decompression and fusion and a calcified gallstone are noted. The bowel gas pattern is normal. The amount of stool is within normal limits. IMPRESSION: 1. No evidence for a bowel obstruction. 2. Cholelithiasis. ACT 112: Negative or not required by law. Electronically signed by: Walter Victoria M.D. 01/20/2024 4:38 PM Chest X-Ray 01/20/24 15:58 XR chest 1V not portable CLINICAL HISTORY: Chest pain. COMPARISON STUDY: Chest radiograph January 16, 2024. FINDINGS: Lung volumes are normal. Lungs are clear. There is no pneumothorax or pleural effusion. Mild cardiomegaly. Mediastinal contours are normal. There is no evidence for pulmonary edema. IMPRESSION: No acute cardiopulmonary findings. ACT 112: Negative or not required by law. Electronically signed by: Walter Victoria M.D. 01/20/2024 4:22 PM Pending Results Patient Have Any Pending Studies at Discharge: No Discharge Instructions Given to Patient (Per Discharging Provider) Merritt Molina are admitted with an acute hip fracture that was surgically repaired. He was seen by the orthopedic surgeon who recommends that you continue with weightbearing as tolerated and a dry dressing change to the area every day. Continue with routine wound care. They recommend continuing with aspirin 81 mg twice a day for DVT prophylaxis. Please keep close follow-up with orthopedic surgery in 2 to 3 weeks. We also treated you for hypertension. Continue with the losartan 100 mg in the morning and the amlodipine 5 mg twice a day. We also treated you for oral thrush for about 3 days of treatment. Continue with that for an additional 2 days or as needed. Please continue to drink lots of fluids to help with your kidney function. Your vitamin D levels were also noted to be low. Continue with oral vitamin D supplement as prescribed. Your iron levels were also low. we did treat you with IV iron while hospitalized. Continue with an oral supplement daily with close PCP follow-up. Please keep close follow up with your primary care provider after discharge. Please do not hesitate to come back to the emergency room if your symptoms worsen or return. It was a pleasure taking care of you while you were here. Total Time Total Time Spent Total Time Spent (In Minutes): 65
== END 2024-01-24 10:49 | DRG 481 ==
LOC: ED 18:26 → SUATTDRO 23:46 → EDINP 23:46 → 2N 01-17 01:41